=== PATIENT | male | born 1970 | race African-American/Black ===

== ENCOUNTER 2021-01-20 10:26 | Inpatient (IN) | payer OTHER ==
[~2021-01-20] VITALS: Ht 172.7 cm; Wt 46.3 kg
--- NOTE | 2021-01-20 18:15 | NUR ---
Received pt on shiley 6DCT. placed pt on cool aerosol via trach mask. pt awake and alert. back up trach and ambu bag at bedside. sx pt for mod amount of think yellow secretion. will cont to monitor pt.
--- NOTE | 2021-01-20 18:15 | NUR ---
PER REPORT FROM [facility] JUN[facility] PT. HAS NO WOUNDS, NO SKIN CONDITIONS,AND DOXYCYCLINE WILL BE CONTINUED X 45DAYS FOR SSTI ON NECK SINCE NECK MASS WAS NEGATIVE FOR MALIGNANCY ,THIS IS TREATED INFECTION.
--- NOTE | 2021-01-20 18:15 | NUR ---
PT. WAS ADMITTED AT THIS TIME FROM [facility] .REPORT PREVIOUSLY OBTAINED FROM [facility] RN SLADE COVARRUBIAS REPORT TO CH. NURSE AND ACCORDING TO HER PT .IS ALERT AND ORIENTED X PERSON ,PLACE,TIME AND SITUATION,NOT ON ANY PSYCHOTROPICS,CONTINENT OF B&B ABLE TO USE URINAL AND HE IS [place],HAS BLURRED VISION IS ON PUREED DIET(D/T DYSPHAGIA) WITH THIN LIQUIDS,RT. 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 HAS NO GASTRIC TUBE,.PT. HAD RT NECK MASS THAT HAD BIOPSY ON 12/28/[address] SCAN PENDING TO DO IN A FEW WEEKS MORE TO F/U.NO RECORD OF PNEUMONIA ,FLU VACCINE OR COVID 19 VACCINE ADM. LAST COVID 19 TEST WAS DONE ON 01/18/21 AND WAS NEGATIVE.
--- NOTE | 2021-01-20 18:20 | NUR ---
V/S CHECKED FOLLOW:134/96,HR 104X', O2 SAT 100%,RR 22X', TEMP. 98.3F,P/A 0/10.
--- NOTE | 2021-01-20 18:30 | NUR ---
DR. BENAVIDES WAS CALLED TO VERIFY MEDICAL ORDERS.
--- NOTE | 2021-01-20 18:45 | NUR ---
( CLUB ROOM ATTENDANT FOR DR. BENAVIDES )CALLED BACK AND MEDICAL ORDERS WERE VERIFIED WITH HIM AND STATED THAT HE WILL SEE PT. TOMORROW.ALSO DR. NEGRNO (ENERGY CONSERVATION SPECIALIST) WAS CALLED AND WITH ORDER TO CHANGE BREATHING TX'S FROM PRN TO Q 8 HRS. AND HE WILL EVALUATE PT.TOO.
[2021-01-20] MEDS ORDERED: hydrALAZINE HCL 10 MG TABLET PO PRN (19:30)
[2021-01-20] MEDS ORDERED: ALBUTEROL SULFATE 2.5 MG/3 ML NEBU NEB PRN (19:30)
[2021-01-20] MEDS ORDERED: BISACODYL 10 MG SUPP.RECT RC PRN (19:30)
[2021-01-20] MEDS ORDERED: ACETAMINOPHEN 325 MG TABLET-SA PATIENTS-FEVER ONLY PO PRN (19:30)
[2021-01-20] MEDS ORDERED: ONDANSETRON HCL 4 MG TABLET PO PRN (19:45)
[2021-01-20 20:00] VITALS: BP 119/70
[2021-01-20] MEDS: DEXAMETHASONE 4 MG TABLET PO SCH (21:00)
[2021-01-20] MEDS: DOXYCYCLINE HYCLATE 100 MG TABLET PO SCH (21:00)
[2021-01-20] MEDS: FAMOTIDINE 20 MG TABLET PO SCH (21:00)
[2021-01-20 22:00] VITALS: BP 120/65
[2021-01-20] MEDS: GUAIFENESIN/DEXTROMETHORPHAN 5 ML UDC PO PRN (22:00)
[2021-01-20] MEDS: ALBUTEROL SULFATE 2.5 MG/3 ML NEBU NEB SCH (22:00)
--- NOTE | 2021-01-20 22:00 | NUR ---
Patient is alert and oriented, trach is intact, on TM @ 28% Fi02, 02 sat @ 100%, Denies any pain at this time. Patient is on puree diet and is requesting for Bagels, eggs and waffles. I informed him that we need to have the speech evaluate him before giving him the regular foods he was asking and I informed him of his current puree diet and offered him variety of pureed foods but he refused and requested for apple juice. I gave him apple juice with his medications and he took it without any problems, on aspiration precaution. Body assessment done and noted with multiple tattoos all over his body, noted with skin dryness on both feet extending to the legs, open skin on the lower lip, left lateral foot bunion, Bump on right mastoid area; skin is intact around bump, Noted with skin growth on the occipital area, and above tracheostomy site. with decreased hearing on the right ear and blurred vision on the left eye. Patient also claimed that he has right sided weakness but is able to raise both right upper and lower extremities briefly. He allowed us to do body check but refused to be touch on the Right Neck area. Patient is seen using the urinal and he is continent of bowel, kept patient clean and comfortable, needs attended and call light within his reach. Addendum: 01/21/21 at 0147 by EVANGELISTA KEMP RN On Doxycycline by mouth for SSTI, no adverse reactions noted, afebrile, good skin care done, will continue monitor.
--- NOTE | 2021-01-20 22:00 | NUR ---
TX NOT GIVEN DUE TO PUI PROTOCOL
[2021-01-21] VITALS: BP_SYST 118; BP_SYST 122; BP_DIAS 68; BP_DIAS 78
[2021-01-21] MEDS: NEOMY/BACITRAC/POLYMI OINT 28.35 GM TUBE TOP SCH ×3 (02:01→21:01)
[2021-01-21] MEDS: VITAMINS A AND D OINT TP SCH ×7 (02:02→21:01)
[2021-01-21] MEDS: GUAIFENESIN/DEXTROMETHORPHAN 5 ML UDC PO PRN (03:00)
[2021-01-21 04:00] VITALS: BP 122/77
[2021-01-21 06:00] VITALS: BP 120/68
[2021-01-21] MEDS: ALBUTEROL SULFATE 2.5 MG/3 ML NEBU NEB SCH ×3 (06:00→23:35)
[2021-01-21 07:55] VITALS: BP 119/75
[2021-01-21] MEDS: DOXYCYCLINE HYCLATE 100 MG TABLET PO SCH ×2 (09:00→20:57)
[2021-01-21] MEDS: DEXAMETHASONE 4 MG TABLET PO SCH ×2 (09:00→20:49)
[2021-01-21] MEDS: POLYVINYL ALCOHOL OPHT DROPS 15 ML BOTTLE OP SCH ×3 (09:00→17:40)
[2021-01-21] MEDS: MAG HYDROX/AL HYDROX/SIMETH 30 ML LIQUID UDC PO SCH ×3 (09:00→17:44)
[2021-01-21] MEDS: AMLODIPINE 5 MG TABLET PO SCH (09:00)
[2021-01-21] MEDS: CARBAMIDE PEROXIDE OTIC DROP 15 ML BOTTLE OT SCH ×2 (09:00→17:44)
[2021-01-21] MEDS: GABAPENTIN 300 MG CAPSULE PO SCH ×3 (09:00→17:43)
[2021-01-21] MEDS: MEGESTROL ACETATE 400 MG/10 ML LIQUID UDC PO SCH (09:00)
[2021-01-21] MEDS: FAMOTIDINE 20 MG TABLET PO SCH ×2 (09:00→20:57)
--- NOTE | 2021-01-21 10:00 | NUR ---
DR. SILVA WAS CALLED TODAY AND HE STATED THAT WILL SEE PT. TODAY.
[2021-01-21] MEDS ORDERED: TUBERCULIN,PURIF.PROT.DERIV. 5 TU/0.1 ML TEST ID ONE (11:30)
--- NOTE | 2021-01-21 12:52 | NUR ---
PT'S BROTHER CHAPO (VERIFIED WITH PT'S ADEEL GOEL)STATED THAT WILL CALL PT. TODAY AND PT. AWARE.
--- NOTE | 2021-01-21 12:55 | NUR ---
PT'S BROTHER SELF SUCTIONING MOUTH AND NOTED REDDISH COLOR SECRETIONS IN SUCTION CANISTER (PT. DRANK THIN RED COLOR ENSURE) ,THICK TRACHEAL SECRETIONS NOTED FROM TACH.
--- NOTE | 2021-01-21 12:58 | NUR ---
DIETARY AWARE THAT PT. DOES NOT LITE OATMEAL ,THAT HE PREFERS GRITS,AND PT. REQUESTING DOUBLE PORTION OF MEALS.
--- NOTE | 2021-01-21 13:00 | NUR ---
PT. ABLE TO USE URINAL BY HIMSELF AND NOTED LIGHT ORANGE URINE COLOR,NEEDS ASSISTANCE FOR PERSONAL CARE BUT WITH ACTIVELY PARTICIPATING ON IT AND DOING IT IN HIS TIME.
--- NOTE | 2021-01-21 13:03 | NUR ---
CALL LIGHT ON REACH AND ABLE TO USE IT.PUI MEASURES FOR COVID 19 PROTOCOL OF ADMISSION TO SUB ACUTE UNIT KEPT AT ALL TIMES.
--- NOTE | 2021-01-21 14:00 | NUR ---
INVENTORY ADMISSION LIST VERIFIED WITH PT. BUT HE WAS UNABLE TO SIGN IT.
[2021-01-21 20:00] VITALS: BP 122/84
--- NOTE | 2021-01-21 21:37 | NUR ---
Patient is alert and oriented, trach intact and patent, patient is able to suction his mouth with the yankauer, noted with thick yellow secretions, no respiratory distress noted. On Doxycycline by mouth for SSTI, no adverse reactions noted. Good skin care done. On contact isolation precaution for PUI per admission protocol. Kept clean and dry, needs attended, call light within reach.
[2021-01-22] VITALS: BP 130/84
[2021-01-22 06:06] VITALS: BP 126/86
--- NOTE | 2021-01-22 06:53 | NUR ---
Sharan from the [facility] called and relayed Covid 19 test result that was Negative, patient is alert and oriented, notified patient of his covid 19 Negative result.
[2021-01-22 07:42] VITALS: BP 124/85
[2021-01-22] MEDS: ALBUTEROL SULFATE 2.5 MG/3 ML NEBU NEB SCH ×3 (08:11→22:00)
--- NOTE | 2021-01-22 09:30 | NUR ---
PT. WAS EVALUATED BY PHYSICAL THERAPIST KHALIF AND WITH NEW ORDERS CARRIED OUT FROM DR. BENAVIDES.
[2021-01-22] MEDS: POLYVINYL ALCOHOL OPHT DROPS 15 ML BOTTLE OP SCH ×3 (09:55→17:33)
[2021-01-22] MEDS: CARBAMIDE PEROXIDE OTIC DROP 15 ML BOTTLE OT SCH ×2 (09:55→17:33)
[2021-01-22] MEDS: DEXAMETHASONE 4 MG TABLET PO SCH ×2 (09:56→21:00)
[2021-01-22] MEDS: MEGESTROL ACETATE 400 MG/10 ML LIQUID UDC PO SCH (09:57)
[2021-01-22] MEDS: VITAMINS A AND D OINT TP SCH ×5 (09:58→21:00)
[2021-01-22] MEDS: DOXYCYCLINE HYCLATE 100 MG TABLET PO SCH ×2 (09:58→21:00)
[2021-01-22] MEDS: GABAPENTIN 300 MG CAPSULE PO SCH ×3 (09:58→17:34)
[2021-01-22] MEDS: FAMOTIDINE 20 MG TABLET PO SCH ×2 (09:58→21:00)
[2021-01-22] MEDS: NEOMY/BACITRAC/POLYMI OINT 28.35 GM TUBE TOP SCH ×2 (09:58→21:00)
[2021-01-22] MEDS: AMLODIPINE 5 MG TABLET PO SCH (09:58)
[2021-01-22] MEDS: MAG HYDROX/AL HYDROX/SIMETH 30 ML LIQUID UDC PO SCH ×3 (09:59→17:33)
[2021-01-22 12:15] VITALS: BP 121/80
--- NOTE | 2021-01-22 13:22 | NUR ---
PT. WAS SEEN AND EXAMINED BY DR. GODINEZ AND HE EXAMINED HIS EARS(SEE HIS NOTES) AND HE STATED THAT CONTINUE THE DOXYCYCLINE ORDERED,ALSO HE WAS AWARE OF [facility] FOR [facility] FOR STOPPING DATE OF DEBROX.
--- NOTE | 2021-01-22 13:25 | NUR ---
PER DR. GODINEZ STATMENT PT. HAS SOMETHING INSIDE RT EAR MAY BE LIKE A COTTON PIECE BUT HE IS UNABLE TO REMOVE IT AT THIS TIME AND WITH NNO AT THIS TIME.
--- NOTE | 2021-01-22 13:25 | NUR ---
PER PT'S STATEMENT HE SAID HE PUT A Q TIP IN HIS RT EAR A MONTH AGO AND IN PREVIOUS HOSPITAL THEY COULD NOT REMOVED BECAUSE THEY DID NOT HAVE THE "SPATULA" .
--- NOTE | 2021-01-22 13:27 | NUR ---
DR. SILVA ALSO AWARE THAT PT. DOES NOT WANT ANY PNEUMONIA,FLU OR COVID 19 VACCINE.
--- NOTE | 2021-01-22 17:59 | NUR ---
NEW ORDER WAS CARRIED OUT FOR COVID [address] GODINEZ PER [facility] REQUIREMENT.
[2021-01-22 18:38] VITALS: BP 129/82
[2021-01-22 21:00] VITALS: BP 120/84
[2021-01-23] VITALS: BP 118/77
[2021-01-23 06:24] VITALS: BP 126/90
[2021-01-23] MEDS: ALBUTEROL SULFATE 2.5 MG/3 ML NEBU NEB SCH ×3 (07:29→23:18)
[2021-01-23 07:50] VITALS: BP 127/93
[2021-01-23] MEDS: CARBAMIDE PEROXIDE OTIC DROP 15 ML BOTTLE OT SCH ×2 (09:22→18:00)
[2021-01-23] MEDS: POLYVINYL ALCOHOL OPHT DROPS 15 ML BOTTLE OP SCH ×3 (09:32→18:00)
[2021-01-23] MEDS: DEXAMETHASONE 4 MG TABLET PO SCH ×2 (09:34→21:00)
[2021-01-23] MEDS: MAG HYDROX/AL HYDROX/SIMETH 30 ML LIQUID UDC PO SCH ×3 (09:34→18:00)
[2021-01-23] MEDS: GABAPENTIN 300 MG CAPSULE PO SCH ×3 (09:37→18:00)
[2021-01-23] MEDS: MEGESTROL ACETATE 400 MG/10 ML LIQUID UDC PO SCH (09:37)
[2021-01-23] MEDS: AMLODIPINE 5 MG TABLET PO SCH (09:38)
[2021-01-23] MEDS: DOXYCYCLINE HYCLATE 100 MG TABLET PO SCH ×2 (09:39→21:00)
[2021-01-23] MEDS: FAMOTIDINE 20 MG TABLET PO SCH ×2 (09:39→21:00)
[2021-01-23] MEDS: NEOMY/BACITRAC/POLYMI OINT 28.35 GM TUBE TOP SCH ×2 (09:39→21:00)
[2021-01-23] MEDS: VITAMINS A AND D OINT TP SCH ×5 (09:40→21:00)
--- NOTE | 2021-01-23 12:22 | NUR ---
CONSENT FROM PT'S SON SHERI GIVEN TO 2 NURSES TO ADMINISTRATE 2ND DOSE MODERNA VACCINE ORDERD BY DR. WHITE .HE WAS ALSO AWARE THAT PT.HAS AN ORDER FOR WOUND CARE CONSULT TO RE-EVALUATE SACRAL SKIN D/T IS SHOWING SOME DRY PEELING OPEN SKIN AND THAT A PICTURE WAS TAKEN TOO AND HE WAS IN AGREEMENT.HE ASKED NURSE IF WE CAN PROVIDE PURE WICK URINE COLLECTION DEVICE TO CONTROL CONSTANT URINATION(PT. ON 2 ) AND THIS WILL BE F/U WITH APPRENTICE PHOTOGRAPHER,SHERI STATED THAT THIS WORKED GOOD IN THE OTHER FACILITY. Addendum: 01/24/21 at 1600 by RACHELLE MAI RN ERROR IN ENTRY WRONG ACCOUNT.
--- NOTE | 2021-01-23 12:24 | NUR ---
Pie Topper Assessment: 11:40am: This LCSWW met with the patient today to complete the initial admission assessment. Patient is a 50-year old -Hungarian male, admitted from [facility] to [facility] on 01/20/21. Patient has diagnosis of nontraumatic intracerebral hemorrhage, currently requiring a trach. Patient is alert, oriented, able to communicate, although speech is at times unclear and tone of voice is pressured. Patient is disabled, reports no work history. Patient lives in an apartment with his and children (18 year old boy and 8 year old girl). Patients [address] is [address] [place], [place] [address] [place] [address]. Patients phone number is [phone]. Patient reports occasional use of cigarettes and alcohol, and regular use of marijuana. Patient did not provide specifics of frequency of use of marijuana, however stated that he last used marijuana before his hospitalization. Patient denied hx of mental illness; per patient's medical records patient is not on any antidepressants, anti-anxiety, or psychotropics medication. Patient observed to be guarded, limited in his engagement in conversation with this interviewee. Patient stated that STOCK DEALER can contact patients and patients brother for further information. STOCK DEALER to follow-up with patients family to complete initial assessment, and to coordinate obtaining signatures on patients admission paperwork. Patient's code status is a Full Code.
--- NOTE | 2021-01-23 12:25 | NUR ---
ERROR IN ENTRY,WRONG ACCOUNT. Addendum: 01/24/21 at 1602 by RACHELLE MAI RN ON 01/23/21 AT 12:22 WRONG ACCOUNT ENTRY.(CLARIFICATION)
[2021-01-23 12:30] VITALS: BP 120/90
--- NOTE | 2021-01-23 15:31 | NUR ---
ACTUARIAL DIRECTOR EZEQUIEL PATTERSON WAS NOTIFIED RE: PT. NEEDS ENT MD IS NEEDED TO F/U REMOVAL OF APPARENTLY A COTTON PIECE FROM A Q TIP FROM PT'S RT. EAR ACCORDING TO DR. GODINEZ FINDING YESTERDAY.
--- NOTE | 2021-01-23 15:38 | NUR ---
DIETARY WAS AWARE OF PT'S FOOD PREFERENCES IN THE MORNING AND REG. BOWLING BALL MOLD ASSEMBLER TOO AWARE OF PT'S WT. 102.4# AND WILL F/U TO EVALUATE.
[2021-01-23 17:12] LABS: THYROID STIMULATING HORMONE 2.296 mIU/mL (0.358-3.740)
--- NOTE | 2021-01-23 18:00 | NUR ---
PT. OBSERVED SUCTIONING HIMSELF MOUTH SPECIALLY AFTER HE TAKES ANYTHING BY MOUTH BUT WHEN TRACHEAL SECRETIONS SUCTIONED NOTED NO PARTICLES OF FOOD.
[2021-01-23 18:12] VITALS: BP 110/87
[2021-01-23] MEDS: GUAIFENESIN/DEXTROMETHORPHAN 5 ML UDC PO PRN (18:17)
--- NOTE | 2021-01-23 18:52 | NUR ---
DR. GODINEZ WAS CALLED TO F/U ENT EVAL FOR PT. AND HE STATED IF NO ENT CAN COME TO THE UNIT THEN ARRANGE TO SEND PT. OUT FOR APPOINTMENT,MESSAGE LEFT TO WILDLIFE CONSERVATIONIST EZEQUIEL PATTERSON.
[2021-01-23 20:07] VITALS: BP 118/79
--- NOTE | 2021-01-23 23:19 | NUR ---
TX NOT GIVEN PT IS PUI, NOTIFIED RN. NO RESP DISTRESS NOTED.
[2021-01-24] VITALS: BP 124/86
[2021-01-24] MEDS: ALBUTEROL SULFATE 2.5 MG/3 ML NEBU NEB SCH ×3 (00:06→15:43)
[2021-01-24 06:30] VITALS: BP 123/82
[2021-01-24 06:43] LABS: BASOPHILS % (AUTO) 0.1 % (0.0-2.0); LYMPHOCYTES # (AUTO) 0.6 K/uL (20.0-40.0); LYMPHOCYTES % (AUTO) 4.5 % (20.5-51.5); MEAN CORPUSCULAR HEMOGLOBIN 31.4 uug (23.8-33.4); MEAN CORPUSCULAR HGB CONC 33 g/dL (32.5-36.3); MEAN CORPUSCULAR VOLUME 93.9 fL (73.0-96.2); MONOCYTES # (AUTO) 1.3 K/uL (2.0-10.0); MONOCYTES % (AUTO) 9.2 % (0.0-11.0); NEUTROPHILS # (AUTO) 11.9 K/uL (1.8-8.9); NEUTROPHILS % (AUTO) 86.2 % (38.5-71.5); PLATELET COUNT (AUTO) 282 K/uL (152-348); RED BLOOD CELL COUNT(AUTO) 4.16 MIL/uL (4.06-5.63); WHITE BLOOD COUNT (AUTO) 13.8 K/uL (3.6-10.2)
[2021-01-24 06:54] LABS: ALANINE AMINOTRANSFERASE 103 U/L (16-63); ALKALINE PHOSPHATASE 89 U/L (50-136); ASPARTATE AMINOTRANSFERASE 28 U/L (15-37); BILIRUBIN,TOTAL 0.4 mg/dL (0.2-1.0); CARBON DIOXIDE 25 mmol/L (21-32); CHLORIDE 99 mmol/L (98-107); CREATININE 0.7 mg/dL (0.6-1.3); GLUCOSE 128 mg/dL (74-106); MAGNESIUM 2.4 mg/dL (1.8-2.4); PHOSPHOROUS 3.2 mg/dL (2.5-4.9); POTASSIUM 4.6 mmol/L (3.5-5.1); TOTAL PROTEIN, SERUM 6.1 g/dL (6.4-8.2); UREA NITROGEN, BLOOD 24 mg/dL (7-18)
[2021-01-24 07:39] VITALS: BP 124/84
[2021-01-24] MEDS: CARBAMIDE PEROXIDE OTIC DROP 15 ML BOTTLE OT SCH (08:33)
[2021-01-24] MEDS: POLYVINYL ALCOHOL OPHT DROPS 15 ML BOTTLE OP SCH (08:33)
[2021-01-24] MEDS: DEXAMETHASONE 4 MG TABLET PO SCH ×2 (08:34→21:19)
[2021-01-24] MEDS: GABAPENTIN 300 MG CAPSULE PO SCH ×3 (08:36→17:38)
[2021-01-24] MEDS: MEGESTROL ACETATE 400 MG/10 ML LIQUID UDC PO SCH (08:36)
[2021-01-24] MEDS: FAMOTIDINE 20 MG TABLET PO SCH ×2 (08:37→21:19)
[2021-01-24] MEDS: AMLODIPINE 5 MG TABLET PO SCH (08:37)
[2021-01-24] MEDS: VITAMINS A AND D OINT TP SCH ×5 (08:38→21:20)
[2021-01-24] MEDS: DOXYCYCLINE HYCLATE 100 MG TABLET PO SCH (08:38)
[2021-01-24] MEDS: MAG HYDROX/AL HYDROX/SIMETH 30 ML LIQUID UDC PO SCH ×3 (08:40→17:38)
[2021-01-24] MEDS: GUAIFENESIN/DEXTROMETHORPHAN 5 ML UDC PO PRN ×3 (08:47→22:32)
[2021-01-24] MEDS: NEOMY/BACITRAC/POLYMI OINT 28.35 GM TUBE TOP SCH ×2 (09:00→21:20)
--- NOTE | 2021-01-24 09:20 | NUR ---
DR. NEGRON WAS CALLED RE: PT. REQUEST FOR MEDICATION FOR HICCUPS.
[2021-01-24 12:00] VITALS: BP 108/53
[2021-01-24] MEDS: POLYVINYL ALCOHOL OPHT DROPS 15 ML BOTTLE EACHEYE SCH ×2 (12:53→17:38)
--- NOTE | 2021-01-24 14:20 | NUR ---
NEW ORDER FROM DR. BENAVIDES CARRIED OUT FOR [facility] FIRST STEP SELECT MATTRESS FOR SKIN MANAGEMENT D/T PT. IS UNDER WEIGHT PER REG. PROGRAM/MUSIC DIRECTOR CLARISSA .
--- NOTE | 2021-01-24 15:32 | NUR ---
ER DR. WILKERSON EXAMINED PT'S BOTH EARS ANS SHE WAS UNABLE TO REMOVE RT. EAR FOREIGN OBJET FROM PT'S EAR AND SHE WILL SPEAK WITH ENT TO F/U.
--- NOTE | 2021-01-24 17:32 | NUR ---
PER HELP DESK COORDINATOR EZEQUIEL PATTERSON ,UNDERWEAR HEMMER WILL BE DR. WHITE INSTEAD OF DR. NEGRON. WAS NOTIFIED AND DR. WHITE WAS CALLED AND WAS AIR EXPORT AGENT AND HE WAS NOTIFIED RE: PT. WITH PIECE OF Q TIP IN HIS RT EAR ACCORDING TO HIM AND HE SAID TO CONTINUE WITH ENT CONSULT ORDERED AND DR. WHITE WILL F/U TOMORROW TOO.PER HELP DESK COORDINATOR EZEQUIEL PATTERSON HE AND DR. FRANCIS WILL SPEAK TO MR CARNEY TOMORROW RE: ENT CONSULTATION.
[2021-01-24] MEDS: CARBAMIDE PEROXIDE OTIC DROP 15 ML BOTTLE RIGHT EAR SCH (17:38)
[2021-01-24 18:00] VITALS: BP 125/78
--- NOTE | 2021-01-24 18:00 | NUR ---
PPD READING AT 48 HRS AND AT 72 HRS WAS NEGATIVE(SEE RECORD)
[2021-01-24 20:00] VITALS: BP 128/83
[2021-01-25] VITALS: BP 125/85
[2021-01-25] MEDS: ALBUTEROL SULFATE 2.5 MG/3 ML NEBU NEB SCH ×3 (00:10→15:13)
[2021-01-25] MEDS: MAG HYDROX/AL HYDROX/SIMETH 30 ML LIQUID UDC PO SCH ×3 (08:00→17:20)
[2021-01-25 09:10] VITALS: BP 121/84
[2021-01-25] MEDS: POLYVINYL ALCOHOL OPHT DROPS 15 ML BOTTLE EACHEYE SCH ×3 (09:11→17:20)
[2021-01-25] MEDS: DEXAMETHASONE 4 MG TABLET PO SCH ×2 (09:14→21:23)
[2021-01-25] MEDS: GABAPENTIN 300 MG CAPSULE PO SCH ×3 (09:14→17:20)
[2021-01-25] MEDS: MEGESTROL ACETATE 400 MG/10 ML LIQUID UDC PO SCH (09:14)
[2021-01-25] MEDS: AMLODIPINE 5 MG TABLET PO SCH (09:14)
[2021-01-25] MEDS: VITAMINS A AND D OINT TP SCH ×5 (09:16→21:24)
[2021-01-25] MEDS: NEOMY/BACITRAC/POLYMI OINT 28.35 GM TUBE TOP SCH ×2 (09:16→21:24)
[2021-01-25] MEDS: FAMOTIDINE 20 MG TABLET PO SCH ×2 (09:16→21:24)
[2021-01-25] MEDS: CARBAMIDE PEROXIDE OTIC DROP 15 ML BOTTLE RIGHT EAR SCH ×2 (09:16→17:20)
[2021-01-25 11:54] VITALS: BP 128/85
--- NOTE | 2021-01-25 15:06 | NUR ---
DYLAN attempted to contact patient's Lexie [phone] in order to further discuss care coordination and admission paperwork, but Lexie was not available. DYLAN left a voicemail message asking for Lexie to call this DYLAN back.
[2021-01-25 18:02] VITALS: BP 121/76
--- NOTE | 2021-01-25 18:27 | NUR ---
SEEN AND EXAMINED BY DR WHITE, WITH NEW ORDERS, NOTED AND CARRIED OUT.
[2021-01-25 20:00] VITALS: BP 131/93
[2021-01-25] MEDS: CLOTRIMAZOLE 10 MG TROCHE MM SCH (21:22)
[2021-01-25] MEDS: GUAIFENESIN/DEXTROMETHORPHAN 5 ML UDC PO PRN (21:32)
--- NOTE | 2021-01-25 22:00 | NUR ---
Patient is alert and oriented, trach is intact and patent, patient is noted suctioning his mouth, noted with thick yellow sputum, on Mycelex by mouth for oral candidiasis, no adverse reactions noted. Denies any discomfort, needs attended, call light within reach, will continue monitor.
[2021-01-26] MEDS: CLOTRIMAZOLE 10 MG TROCHE MM SCH ×5 (05:50→21:21)
[2021-01-26 06:08] VITALS: BP 131/88
[2021-01-26] MEDS: GUAIFENESIN/DEXTROMETHORPHAN 5 ML UDC PO PRN ×2 (06:08→21:30)
[2021-01-26 06:45] LABS: BASOPHILS % (AUTO) 0.1 % (0.0-2.0); HEMOGLOBIN 13.2 g/dL (12.5-16.3); LYMPHOCYTES # (AUTO) 0.3 K/uL (20.0-40.0); LYMPHOCYTES % (AUTO) 1.8 % (20.5-51.5); MEAN CORPUSCULAR HEMOGLOBIN 30.9 uug (23.8-33.4); MEAN CORPUSCULAR HGB CONC 33 g/dL (32.5-36.3); MEAN CORPUSCULAR VOLUME 93.5 fL (73.0-96.2); MONOCYTES # (AUTO) 1.6 K/uL (2.0-10.0); MONOCYTES % (AUTO) 8.6 % (0.0-11.0); NEUTROPHILS # (AUTO) 16.6 K/uL (1.8-8.9); NEUTROPHILS % (AUTO) 89.5 % (38.5-71.5); PLATELET COUNT (AUTO) 297 K/uL (152-348); RED BLOOD CELL COUNT(AUTO) 4.28 MIL/uL (4.06-5.63); WHITE BLOOD COUNT (AUTO) 18.6 K/uL (3.6-10.2)
[2021-01-26 06:52] LABS: CREATININE 0.8 mg/dL (0.6-1.3); POTASSIUM 4.2 mmol/L (3.5-5.1)
[2021-01-26] MEDS: ALBUTEROL SULFATE 2.5 MG/3 ML NEBU NEB SCH ×3 (07:58→23:40)
[2021-01-26] MEDS: MAG HYDROX/AL HYDROX/SIMETH 30 ML LIQUID UDC PO SCH ×3 (08:00→17:36)
[2021-01-26 08:03] VITALS: BP 120/80
[2021-01-26] MEDS: POLYVINYL ALCOHOL OPHT DROPS 15 ML BOTTLE EACHEYE SCH ×3 (09:00→17:36)
[2021-01-26] MEDS: VITAMINS A AND D OINT TP SCH ×5 (09:00→21:24)
[2021-01-26] MEDS: CARBAMIDE PEROXIDE OTIC DROP 15 ML BOTTLE RIGHT EAR SCH ×2 (09:00→17:36)
[2021-01-26] MEDS: MEGESTROL ACETATE 400 MG/10 ML LIQUID UDC PO SCH (09:00)
[2021-01-26] MEDS: GABAPENTIN 300 MG CAPSULE PO SCH ×3 (09:00→17:36)
[2021-01-26] MEDS: NEOMY/BACITRAC/POLYMI OINT 28.35 GM TUBE TOP SCH ×2 (09:00→21:24)
[2021-01-26] MEDS: FAMOTIDINE 20 MG TABLET PO SCH (09:00)
[2021-01-26] MEDS: AMLODIPINE 5 MG TABLET PO SCH (09:00)
[2021-01-26] MEDS: DEXAMETHASONE 4 MG TABLET PO SCH ×2 (09:00→21:23)
--- NOTE | 2021-01-26 11:42 | NUR ---
Career Center Advisor note: This MANAGER WORKERS COMPENSATION received a voicemail message from patient's Lexie, in response to the voicemail this SW had left her yesterday. MANAGER WORKERS COMPENSATION called Lexie back, , and Lexie was available to speak with this SW. Lexie stated that patient has been disabled since 2008, even though he was able somewhat mobile and able to tend to some basic needs. Lexie stated that she is his [facility] caregiver, and assists him with additional ADL's and IADL's. Lexie is the primary point of contact for the patient. SW discussed admission paperwork, and Lexie asked for MANAGER WORKERS COMPENSATION to mail it to her for review and signatures. MANAGER WORKERS COMPENSATION to mail admission paperwork to Lexie. Discharge plans discussed, and Lexie stated that she is hoping that patient is able to get back to his previous level of functioning so that he can then return home. Lexie stated that patient's mother Sharri is also involved in his life. Patient is Full Code.
[2021-01-26 12:00] VITALS: BP 132/86
[2021-01-26] MEDS: PANTOPRAZOLE SODIUM 40 MG TABLET.DR PO SCH (17:00)
[2021-01-26 18:19] VITALS: BP 140/90
[2021-01-26 20:00] VITALS: BP 127/83
[2021-01-26] MEDS: DOXYCYCLINE HYCLATE 100 MG TABLET PO SCH (21:23)
--- NOTE | 2021-01-26 23:30 | NUR ---
Patient is awake, suctioning his mouth with a yankaeur, noted with thick yellow sputum. Denies any respiratory distress. On Mycelex for oral candidiasis, no adverse reactions noted, good oral care rendered. On Doxycycline 100mg by mouth every 12 Hours X 3 months for Leukocytosis, no adverse reactions noted. Patient denies any respiratory distress, needs attended, kept clean and comfortable, call light within reach.
--- NOTE | 2021-01-27 02:45 | NUR ---
Patient is alert and is complaining of discomfort on sacral area, skin with old scar and skin is dry, patient is always on his back, patient is skinny, will Initiate in-house treatment with Desitin and Mepilex for skin maintenance.
[2021-01-27] MEDS: COD LIVER OIL/ZINC OXIDE OINT 113 GM TUBE TOP SCH ×3 (03:00→21:00)
[2021-01-27] MEDS: CLOTRIMAZOLE 10 MG TROCHE MM SCH ×5 (05:32→21:00)
[2021-01-27] MEDS: PANTOPRAZOLE SODIUM 40 MG TABLET.DR PO SCH ×2 (05:35→17:22)
[2021-01-27 06:33] LABS: BASOPHILS % (AUTO) 0.2 % (0.0-2.0); HEMATOCRIT 40.4 % (36.7-47.1); HEMOGLOBIN 13.5 g/dL (12.5-16.3); LYMPHOCYTES # (AUTO) 0.4 K/uL (20.0-40.0); MEAN CORPUSCULAR HEMOGLOBIN 31.2 uug (23.8-33.4); MEAN CORPUSCULAR HGB CONC 33 g/dL (32.5-36.3); MEAN CORPUSCULAR VOLUME 93.5 fL (73.0-96.2); MONOCYTES # (AUTO) 1.4 K/uL (2.0-10.0); MONOCYTES % (AUTO) 7.9 % (0.0-11.0); NEUTROPHILS # (AUTO) 15.5 K/uL (1.8-8.9); NEUTROPHILS % (AUTO) 89.9 % (38.5-71.5); PLATELET COUNT (AUTO) 299 K/uL (152-348); RED BLOOD CELL COUNT(AUTO) 4.32 MIL/uL (4.06-5.63); WHITE BLOOD COUNT (AUTO) 17.2 K/uL (3.6-10.2)
[2021-01-27 06:42] LABS: CARBON DIOXIDE 25 mmol/L (21-32); CHLORIDE 98 mmol/L (98-107); CREATININE 0.6 mg/dL (0.6-1.3); GLUCOSE 124 mg/dL (74-106); POTASSIUM 4.5 mmol/L (3.5-5.1); UREA NITROGEN, BLOOD 22 mg/dL (7-18)
[2021-01-27] MEDS: ALBUTEROL SULFATE 2.5 MG/3 ML NEBU NEB SCH ×3 (07:36→23:44)
[2021-01-27 07:45] VITALS: BP_SYST 130; BP_SYST 98; BP_DIAS 53; BP_DIAS 87
--- NOTE | 2021-01-27 07:45 | NUR ---
PT COMPLAINING OF BREAKFAST SRVE TO HIM. EXPLAINED TO PT THAT HE IS ON A PUREE DIET. BUT COMPLAINING HE WANT CEREAL TO BE DRY. PLACED A CALL TO IT SALES CONSULTANT. IT SALES CONSULTANT WILL COME AND SPEAK TO PT.
--- NOTE | 2021-01-27 08:50 | NUR ---
GIS DEVELOPER CAME AND SPOKE TO PATIENT REGARDING DIET ORDER.
[2021-01-27] MEDS: MAG HYDROX/AL HYDROX/SIMETH 30 ML LIQUID UDC PO SCH ×3 (08:52→17:23)
[2021-01-27] MEDS: POLYVINYL ALCOHOL OPHT DROPS 15 ML BOTTLE EACHEYE SCH ×3 (08:53→17:20)
[2021-01-27] MEDS: DEXAMETHASONE 4 MG TABLET PO SCH ×2 (08:54→21:00)
[2021-01-27] MEDS: GABAPENTIN 300 MG CAPSULE PO SCH ×3 (08:55→17:20)
[2021-01-27] MEDS: AMLODIPINE 5 MG TABLET PO SCH (08:55)
[2021-01-27] MEDS: MEGESTROL ACETATE 400 MG/10 ML LIQUID UDC PO SCH (08:55)
[2021-01-27] MEDS: NEOMY/BACITRAC/POLYMI OINT 28.35 GM TUBE TOP SCH ×2 (08:56→21:00)
[2021-01-27] MEDS: CARBAMIDE PEROXIDE OTIC DROP 15 ML BOTTLE RIGHT EAR SCH ×2 (08:56→17:23)
[2021-01-27] MEDS: VITAMINS A AND D OINT TP SCH ×5 (08:56→21:00)
[2021-01-27] MEDS: DOXYCYCLINE HYCLATE 100 MG TABLET PO SCH ×2 (08:56→21:00)
[2021-01-27 12:00] VITALS: BP 128/74
--- NOTE | 2021-01-27 14:56 | NUR ---
Per physician's order, this MOULDER OPERATOR scheduled an ENT appointment for the patient with Dr. Douglas Marie, for 02/06/21 at 4:15pm. [id number], [place], .
--- NOTE | 2021-01-27 15:21 | NUR ---
This NAME PLATE STAMPER and nurse track manager Jaime Lu met with the patient to inform him of the ENT appointment that has been scheduled for him, per physician's orders. Patient expressed refusal to go to the appointment, and refusal to get the evaluations that were recommended. This NAME PLATE STAMPER and Jaime Lu informed Dr. Vaca and charge entry Mario of patient's refusal.
--- NOTE | 2021-01-27 16:46 | NUR ---
This DOWNSTREAM BIOMANUFACTURING TECHNICIAN mailed the patient's admission paperwork to patient's Lexie, for completion and signatures. This [facility] also mailed the current visitation guidelines for the subacute unit. Mailing address: [address] [place] [address]. [address] [place] [address]
[2021-01-27 18:32] VITALS: BP 132/71
[2021-01-27 20:20] VITALS: BP 120/76
[2021-01-28] MEDS: PANTOPRAZOLE SODIUM 40 MG TABLET.DR PO SCH ×2 (05:44→17:05)
[2021-01-28] MEDS: CLOTRIMAZOLE 10 MG TROCHE MM SCH ×5 (05:44→21:31)
[2021-01-28 06:00] VITALS: BP 122/70
[2021-01-28 07:52] VITALS: BP 120/61
[2021-01-28] MEDS: MAG HYDROX/AL HYDROX/SIMETH 30 ML LIQUID UDC PO SCH ×3 (08:00→17:09)
[2021-01-28] MEDS: ALBUTEROL SULFATE 2.5 MG/3 ML NEBU NEB SCH ×2 (08:21→15:56)
[2021-01-28] MEDS: POLYVINYL ALCOHOL OPHT DROPS 15 ML BOTTLE EACHEYE SCH ×3 (09:00→17:04)
[2021-01-28] MEDS: GABAPENTIN 300 MG CAPSULE PO SCH ×3 (09:00→17:04)
[2021-01-28] MEDS: AMLODIPINE 5 MG TABLET PO SCH (09:00)
[2021-01-28] MEDS: VITAMINS A AND D OINT TP SCH ×5 (09:00→21:32)
[2021-01-28] MEDS: COD LIVER OIL/ZINC OXIDE OINT 113 GM TUBE TOP SCH ×2 (09:00→21:32)
[2021-01-28] MEDS: NEOMY/BACITRAC/POLYMI OINT 28.35 GM TUBE TOP SCH ×2 (09:00→21:32)
[2021-01-28] MEDS: CARBAMIDE PEROXIDE OTIC DROP 15 ML BOTTLE RIGHT EAR SCH ×2 (09:00→17:05)
[2021-01-28] MEDS: DEXAMETHASONE 4 MG TABLET PO SCH ×2 (09:00→21:31)
[2021-01-28] MEDS: DOXYCYCLINE HYCLATE 100 MG TABLET PO SCH ×2 (09:00→21:32)
[2021-01-28] MEDS: MEGESTROL ACETATE 400 MG/10 ML LIQUID UDC PO SCH (09:00)
[2021-01-28] MEDS: ACETAMINOPHEN 325 MG TABLET-SA PATIENTS-PAIN ONLY PO PRN (10:22)
[2021-01-28 12:00] VITALS: BP 126/74
[2021-01-28 17:55] VITALS: BP 124/87
[2021-01-28 20:22] VITALS: BP 122/79
[2021-01-28] MEDS: GUAIFENESIN/DEXTROMETHORPHAN 5 ML UDC PO PRN (22:00)
[2021-01-29] VITALS: BP 120/72
[2021-01-29] MEDS: ALBUTEROL SULFATE 2.5 MG/3 ML NEBU NEB SCH ×4 (00:06→23:30)
[2021-01-29] MEDS: ACETAMINOPHEN 325 MG TABLET-SA PATIENTS-PAIN ONLY PO PRN (00:47)
--- NOTE | 2021-01-29 01:40 | NUR ---
Patient is awake, afebrile, suctioning his mouth with a yankaeur, noted with thick yellow sputum with some red color noted from suction canister. Patient is drinking an Ensure that is [place] flavor noted at bedside and patient confirmed that, that was what he drank earlier. Denies any respiratory distress or SOB, on aspiration precaution, HOB elevated. On Mycelex for oral candidiasis, no adverse reactions noted, good oral care rendered. Also, On Doxycycline 100mg by mouth every 12 Hours X 3 months for Leukocytosis, no adverse reactions noted. Patient needs attended, kept clean and comfortable, call light within reach.
[2021-01-29] MEDS: PANTOPRAZOLE SODIUM 40 MG TABLET.DR PO SCH ×2 (05:18→17:30)
[2021-01-29] MEDS: CLOTRIMAZOLE 10 MG TROCHE MM SCH ×5 (05:18→20:10)
[2021-01-29] MEDS: GUAIFENESIN/DEXTROMETHORPHAN 5 ML UDC PO PRN (05:39)
[2021-01-29 06:00] VITALS: BP 128/76
[2021-01-29 08:01] VITALS: BP 116/77
[2021-01-29] MEDS: MAG HYDROX/AL HYDROX/SIMETH 30 ML LIQUID UDC PO SCH ×3 (08:45→17:32)
[2021-01-29] MEDS: POLYVINYL ALCOHOL OPHT DROPS 15 ML BOTTLE EACHEYE SCH ×3 (08:47→17:28)
[2021-01-29] MEDS: DEXAMETHASONE 4 MG TABLET PO SCH ×2 (08:48→20:09)
[2021-01-29] MEDS: MEGESTROL ACETATE 400 MG/10 ML LIQUID UDC PO SCH (08:50)
[2021-01-29] MEDS: AMLODIPINE 5 MG TABLET PO SCH (08:50)
[2021-01-29] MEDS: GABAPENTIN 300 MG CAPSULE PO SCH ×3 (08:50→17:28)
[2021-01-29] MEDS: DOXYCYCLINE HYCLATE 100 MG TABLET PO SCH ×2 (08:51→20:09)
[2021-01-29] MEDS: COD LIVER OIL/ZINC OXIDE OINT 113 GM TUBE TOP SCH ×2 (08:51→20:11)
[2021-01-29] MEDS: NEOMY/BACITRAC/POLYMI OINT 28.35 GM TUBE TOP SCH ×2 (08:52→20:11)
[2021-01-29] MEDS: VITAMINS A AND D OINT TP SCH ×5 (08:52→20:12)
[2021-01-29] MEDS: CARBAMIDE PEROXIDE OTIC DROP 15 ML BOTTLE RIGHT EAR SCH ×2 (08:56→17:31)
[2021-01-29 17:37] VITALS: BP 125/71
--- NOTE | 2021-01-29 17:45 | NUR ---
Covid 19 test done.
--- NOTE | 2021-01-29 18:01 | NUR ---
Patient is afebrile, suctioned as needed,No respiratory distress or SOB noted,On Po Feeding ,able to feed himself, Hob elevated to prevent aspiration, Continue on Mycelex for oral candidiasis, no adverse reactions noted, oral care done. On Doxycycline 100mg po Q 12 Hours for Leukocytosis, no adverse reactions noted.Pt uses the urinal,able to move in bed.and change his position.
[2021-01-29 18:20] VITALS: BP 127/74
[2021-01-29 20:00] VITALS: BP 114/79
[2021-01-30] MEDS: CLOTRIMAZOLE 10 MG TROCHE MM SCH ×5 (05:36→21:01)
[2021-01-30] MEDS: PANTOPRAZOLE SODIUM 40 MG TABLET.DR PO SCH ×2 (05:36→17:00)
[2021-01-30 06:15] VITALS: BP 127/82
[2021-01-30] MEDS: ALBUTEROL SULFATE 2.5 MG/3 ML NEBU NEB SCH ×3 (06:39→23:19)
[2021-01-30 07:48] VITALS: BP 119/89
[2021-01-30] MEDS: MAG HYDROX/AL HYDROX/SIMETH 30 ML LIQUID UDC PO SCH ×3 (08:56→18:25)
[2021-01-30] MEDS: POLYVINYL ALCOHOL OPHT DROPS 15 ML BOTTLE EACHEYE SCH ×3 (08:56→17:00)
[2021-01-30] MEDS: GABAPENTIN 300 MG CAPSULE PO SCH ×3 (08:58→17:00)
[2021-01-30] MEDS: DEXAMETHASONE 4 MG TABLET PO SCH ×2 (08:58→21:03)
[2021-01-30] MEDS: MEGESTROL ACETATE 400 MG/10 ML LIQUID UDC PO SCH (08:58)
[2021-01-30] MEDS: COD LIVER OIL/ZINC OXIDE OINT 113 GM TUBE TOP SCH ×2 (09:03→21:03)
[2021-01-30] MEDS: NEOMY/BACITRAC/POLYMI OINT 28.35 GM TUBE TOP SCH ×2 (09:03→21:03)
[2021-01-30] MEDS: DOXYCYCLINE HYCLATE 100 MG TABLET PO SCH ×2 (09:03→21:03)
[2021-01-30] MEDS: VITAMINS A AND D OINT TP SCH ×5 (09:03→21:03)
[2021-01-30] MEDS: CARBAMIDE PEROXIDE OTIC DROP 15 ML BOTTLE RIGHT EAR SCH ×2 (09:03→17:00)
[2021-01-30] MEDS: AMLODIPINE 5 MG TABLET PO SCH (09:03)
--- NOTE | 2021-01-30 11:59 | NUR ---
Patient had concerns about wanting to take trach as soon as possible, nurse manager risk management Jaime spoke to patient about concerns (Charge nurse DYLAN Mendez present), Jaime reminded patient of plan to have ENT consult first, which patient had refused last week. Steps for possible decannulation discussed with patient and at this time patient agreed to go to ENT. inpatient services director to f/u. Dr. Vaca notified of situation by Net Application Support Specialist Jaime, per psych consult ordered with Dr. Cummins (for competency to make decisions). Dr. Cummins notified of psych consult, and requested psychiatric social worker supervisor to call her, Deonte RICHARDSON notified of Dr. Cummins request.
--- NOTE | 2021-01-30 12:00 | NUR ---
This ELASTIC ASSEMBLER and unit nurse geothermal plant manager Jaime Lu spoke with Dr. Cummins, per her request, and discussed patient's needs and reason for consultation.
[2021-01-30 18:35] VITALS: BP 125/85
[2021-01-30 20:00] VITALS: BP 126/61
[2021-01-31] MEDS: ALBUTEROL SULFATE 2.5 MG/3 ML NEBU NEB SCH ×3 (00:05→15:23)
[2021-01-31] MEDS: PANTOPRAZOLE SODIUM 40 MG TABLET.DR PO SCH ×2 (05:57→17:21)
[2021-01-31] MEDS: CLOTRIMAZOLE 10 MG TROCHE MM SCH ×5 (05:57→21:00)
[2021-01-31 07:06] LABS: BASOPHILS % (AUTO) 0.2 % (0.0-2.0); EOSINOPHILS % (AUTO) 0.1 % (0.0-7.0); HEMATOCRIT 38.9 % (36.7-47.1); HEMOGLOBIN 13.2 g/dL (12.5-16.3); LYMPHOCYTES # (AUTO) 0.6 K/uL (20.0-40.0); LYMPHOCYTES % (AUTO) 3.4 % (20.5-51.5); MEAN CORPUSCULAR HEMOGLOBIN 31.3 uug (23.8-33.4); MEAN CORPUSCULAR HGB CONC 34 g/dL (32.5-36.3); MEAN CORPUSCULAR VOLUME 92.2 fL (73.0-96.2); MONOCYTES # (AUTO) 1.3 K/uL (2.0-10.0); MONOCYTES % (AUTO) 7.5 % (0.0-11.0); NEUTROPHILS # (AUTO) 15.1 K/uL (1.8-8.9); NEUTROPHILS % (AUTO) 88.8 % (38.5-71.5); PLATELET COUNT (AUTO) 342 K/uL (152-348); RED BLOOD CELL COUNT(AUTO) 4.21 MIL/uL (4.06-5.63)
[2021-01-31 07:19] LABS: ALANINE AMINOTRANSFERASE 109 U/L (16-63); ALKALINE PHOSPHATASE 87 U/L (50-136); ASPARTATE AMINOTRANSFERASE 25 U/L (15-37); BILIRUBIN,TOTAL 0.3 mg/dL (0.2-1.0); CARBON DIOXIDE 24 mmol/L (21-32); CHLORIDE 100 mmol/L (98-107); CREATININE 0.6 mg/dL (0.6-1.3); GLUCOSE 106 mg/dL (74-106); POTASSIUM 4.3 mmol/L (3.5-5.1); TOTAL PROTEIN, SERUM 6.5 g/dL (6.4-8.2); UREA NITROGEN, BLOOD 20 mg/dL (7-18)
[2021-01-31] MEDS: MAG HYDROX/AL HYDROX/SIMETH 30 ML LIQUID UDC PO SCH ×3 (08:54→17:22)
[2021-01-31] MEDS: POLYVINYL ALCOHOL OPHT DROPS 15 ML BOTTLE EACHEYE SCH ×3 (08:55→17:18)
[2021-01-31] MEDS: DEXAMETHASONE 4 MG TABLET PO SCH ×2 (08:55→21:00)
[2021-01-31] MEDS: MEGESTROL ACETATE 400 MG/10 ML LIQUID UDC PO SCH (08:56)
[2021-01-31] MEDS: DOXYCYCLINE HYCLATE 100 MG TABLET PO SCH ×3 (08:56→21:01)
[2021-01-31] MEDS: GABAPENTIN 300 MG CAPSULE PO SCH ×3 (08:56→17:21)
[2021-01-31] MEDS: VITAMINS A AND D OINT TP SCH ×5 (08:57→21:02)
[2021-01-31] MEDS: NEOMY/BACITRAC/POLYMI OINT 28.35 GM TUBE TOP SCH ×2 (08:57→21:02)
[2021-01-31] MEDS: CARBAMIDE PEROXIDE OTIC DROP 15 ML BOTTLE RIGHT EAR SCH ×2 (08:57→17:21)
[2021-01-31] MEDS: COD LIVER OIL/ZINC OXIDE OINT 113 GM TUBE TOP SCH ×2 (08:57→21:02)
[2021-01-31] MEDS: AMLODIPINE 5 MG TABLET PO SCH (09:00)
[2021-01-31 11:29] LABS: LYMPHOCYTES % (MANUAL) 5 % (20-40); MONOCYTES % (MANUAL) 9 % (2-10); NEUTROPHILS % (MANUAL) 86 % (42-75)
[2021-01-31 12:57] VITALS: BP 117/77
--- NOTE | 2021-01-31 13:00 | NUR ---
Seen and evaluated By Dr Nayak for psych consult,no new orders at this time,Seen and examined by the speech therapist and Vanita Tarango,new orders for Video swallow test tomorrow.Pt Agreed with plan of care ,on close observation ,no episodes of trying to pull the trach tube during this shift,education provided about the risk of pulling it out.Pt understand at this time.
--- NOTE | 2021-01-31 15:03 | NUR ---
INTERDISCIPLINARY PLAN OF CARE CONFERENCE was held today. Patient's family was not available to attend the meeting today. Dr. Vaca and the Interdisciplinary Team reviewed the current plan of care in detail. RN reported on patient's medical condition, scheduled ENT appointment for February 06, outcome of psychiatry consultation, along with patient's intermittent uncooperative behavior and refusal off certain treatments. See RN IDT conference notes. Pharmacy discussed medications and treatments. PT discussed treatment plan and participation. OT reported on patient's refusal. SW to coordinate transportation for ENT appointment. SW to also coordinate a family conference with patient's . See all other disciplines IDT notes and physician's progress notes for additional details.
--- NOTE | 2021-01-31 17:01 | NUR ---
DYLAN called patient's Lexie, , and informed her that patient is scheduled for an ENT appointment on February 06. DYLAN stated that DYLAN would arrange transportation for the patient. SW offered for to meet patient at the ENT's office, but Lexie stated that she does not drive and has no means of transportation. DYLAN scheduled a telephone family meeting with Lexie for , 02/02 at 10:30am to discuss patient's plan of care. Lexie expressed agreement with this date/time.
[2021-01-31] MEDS: GUAIFENESIN/DEXTROMETHORPHAN 5 ML UDC PO PRN (17:22)
[2021-01-31 18:37] VITALS: BP 128/70
--- NOTE | 2021-01-31 18:50 | NUR ---
Pt. alert oriented x4. No sob or any respiratory distress. No episode of agitation but non-compliant with repositioning and bed bath. Explained the risk of not turning on the side and not maintaining a good hygiene. Pt. verbalized understanding but still refused to cooperate after offering 3 times. will continue close monitoring. endorsed to the next shift.
--- NOTE | 2021-01-31 19:34 | NUR ---
Pt notified,Covid 19 test result negative.
[2021-01-31 20:00] VITALS: BP 126/68
--- NOTE | 2021-01-31 23:05 | NUR ---
Resident A/O able to make needs know ,Resident refused to take (21:00)routine medications ( Mycelex 10 mg , Decadron 6 mg , Vibramycin 100 mg ) explained the risk and the benefits of the medication ,Resident kept refusing offered X3 times call light within easy reach.
[2021-02-01] MEDS: GUAIFENESIN/DEXTROMETHORPHAN 5 ML UDC PO PRN (06:26)
[2021-02-01] MEDS: PANTOPRAZOLE SODIUM 40 MG TABLET.DR PO SCH ×2 (06:26→17:39)
[2021-02-01] MEDS: CLOTRIMAZOLE 10 MG TROCHE MM SCH ×4 (06:26→17:39)
[2021-02-01] MEDS: ALBUTEROL SULFATE 2.5 MG/3 ML NEBU NEB SCH ×3 (07:35→23:56)
[2021-02-01 07:38] VITALS: BP 130/80
[2021-02-01] MEDS: POLYVINYL ALCOHOL OPHT DROPS 15 ML BOTTLE EACHEYE SCH ×3 (08:20→17:39)
[2021-02-01] MEDS: DEXAMETHASONE 4 MG TABLET PO SCH ×2 (08:20→21:05)
[2021-02-01] MEDS: MAG HYDROX/AL HYDROX/SIMETH 30 ML LIQUID UDC PO SCH ×3 (08:20→17:39)
[2021-02-01] MEDS: MEGESTROL ACETATE 400 MG/10 ML LIQUID UDC PO SCH (08:21)
[2021-02-01] MEDS: GABAPENTIN 300 MG CAPSULE PO SCH ×3 (08:21→17:39)
[2021-02-01] MEDS: CARBAMIDE PEROXIDE OTIC DROP 15 ML BOTTLE RIGHT EAR SCH ×2 (08:22→17:39)
[2021-02-01] MEDS: AMLODIPINE 5 MG TABLET PO SCH (08:22)
[2021-02-01] MEDS: DOXYCYCLINE HYCLATE 100 MG TABLET PO SCH ×2 (08:22→21:06)
[2021-02-01] MEDS: COD LIVER OIL/ZINC OXIDE OINT 113 GM TUBE TOP SCH ×2 (08:22→21:06)
[2021-02-01] MEDS: VITAMINS A AND D OINT TP SCH ×5 (08:23→21:07)
[2021-02-01] MEDS: NEOMY/BACITRAC/POLYMI OINT 28.35 GM TUBE TOP SCH ×2 (08:23→21:07)
--- NOTE | 2021-02-01 11:59 | NUR ---
Video swallow will be done tomorrow per speech therapist,orders carried out.
--- NOTE | 2021-02-01 14:25 | NUR ---
DYLAN mailed the updated guidelines and criteria for visitations, based on [facility] and [facility] directives, to patient's Lexie at[facility] [address] [facility] [address] [place] [id number]
--- NOTE | 2021-02-01 16:07 | NUR ---
Clinical Social work Note Met with this patient briefly after discussion in case management meeting that patient advised staff he would self-extubate himself on Saturday. Patient made no eye contact with this clinician. When asked if he planned to extubate himself, he said " I don't know, I will see on Saturday." Patient is aware is seeing an ENT next week on February 06. Per Dr Cummins during discussion of this case earlier today, patient lacks capacity to make medical decisions. This senior grant writer is of the opinion that the team should wait and see what transpires with patient. A bioethics consultation may be needed next week but this needs to be discussed with primary doctor first. Discussed with Deonte GOLD. Case will be monitored for next step.
--- NOTE | 2021-02-01 16:25 | NUR ---
This SUPERVISOR REWORK received patient registration forms from Dr. Douglas Marie's office (ENT). This SUPERVISOR REWORK met with patient to complete the forms, and obtain patient's signatures. Patient signed all necessary forms. SW will fax the completed forms, along with patient's H&P, list of medications, and insurance authorization to Dr. Marie's office.
--- NOTE | 2021-02-01 18:00 | NUR ---
Pt. alert oriented x4. No sob or any respiratory distress. No episode of agitation but non-compliant with repositioning Explained the risk of not turning on the sides ,Pt verbalized understanding but still refused to cooperate . will continue close monitoring. On po diet eat 25 to 50 %,no episodes of trying to pull out the trach tube this shift.
[2021-02-01 23:24] VITALS: BP 122/88
[2021-02-02] MEDS: GUAIFENESIN/DEXTROMETHORPHAN 5 ML UDC PO PRN ×3 (05:02→20:42)
[2021-02-02] MEDS: PANTOPRAZOLE SODIUM 40 MG TABLET.DR PO SCH ×3 (05:02→17:51)
[2021-02-02 06:50] LABS: BASOPHILS % (AUTO) 0.2 % (0.0-2.0); HEMATOCRIT 40.4 % (36.7-47.1); HEMOGLOBIN 13.8 g/dL (12.5-16.3); LYMPHOCYTES # (AUTO) 0.9 K/uL (20.0-40.0); LYMPHOCYTES % (AUTO) 6.1 % (20.5-51.5); MEAN CORPUSCULAR HEMOGLOBIN 31.3 uug (23.8-33.4); MEAN CORPUSCULAR HGB CONC 34 g/dL (32.5-36.3); MEAN CORPUSCULAR VOLUME 91.7 fL (73.0-96.2); MONOCYTES # (AUTO) 0.8 K/uL (2.0-10.0); MONOCYTES % (AUTO) 5.7 % (0.0-11.0); NEUTROPHILS # (AUTO) 12.8 K/uL (1.8-8.9); PLATELET COUNT (AUTO) 356 K/uL (152-348); RED BLOOD CELL COUNT(AUTO) 4.41 MIL/uL (4.06-5.63); WHITE BLOOD COUNT (AUTO) 14.5 K/uL (3.6-10.2)
[2021-02-02] MEDS: ALBUTEROL SULFATE 2.5 MG/3 ML NEBU NEB SCH ×3 (07:35→23:59)
[2021-02-02 07:37] LABS: ALANINE AMINOTRANSFERASE 123 U/L (16-63); ALKALINE PHOSPHATASE 103 U/L (50-136); ASPARTATE AMINOTRANSFERASE 23 U/L (15-37); BILIRUBIN,TOTAL 0.4 mg/dL (0.2-1.0); CARBON DIOXIDE 25 mmol/L (21-32); CHLORIDE 100 mmol/L (98-107); CREATININE 0.6 mg/dL (0.6-1.3); GLUCOSE 128 mg/dL (74-106); POTASSIUM 4.4 mmol/L (3.5-5.1); UREA NITROGEN, BLOOD 19 mg/dL (7-18)
[2021-02-02 07:49] VITALS: BP 127/75
[2021-02-02] MEDS: MAG HYDROX/AL HYDROX/SIMETH 30 ML LIQUID UDC PO SCH ×3 (08:00→17:52)
[2021-02-02] MEDS: POLYVINYL ALCOHOL OPHT DROPS 15 ML BOTTLE EACHEYE SCH ×3 (09:13→17:50)
[2021-02-02] MEDS: GABAPENTIN 300 MG CAPSULE PO SCH ×3 (09:13→17:50)
[2021-02-02] MEDS: DEXAMETHASONE 4 MG TABLET PO SCH ×2 (09:13→20:32)
[2021-02-02] MEDS: MEGESTROL ACETATE 400 MG/10 ML LIQUID UDC PO SCH (09:13)
[2021-02-02] MEDS: VITAMINS A AND D OINT TP SCH ×5 (09:14→20:33)
[2021-02-02] MEDS: AMLODIPINE 5 MG TABLET PO SCH (09:14)
[2021-02-02] MEDS: CARBAMIDE PEROXIDE OTIC DROP 15 ML BOTTLE RIGHT EAR SCH ×2 (09:14→17:52)
[2021-02-02] MEDS: NEOMY/BACITRAC/POLYMI OINT 28.35 GM TUBE TOP SCH ×2 (09:14→20:33)
[2021-02-02] MEDS: DOXYCYCLINE HYCLATE 100 MG TABLET PO SCH ×2 (09:14→20:32)
[2021-02-02] MEDS: COD LIVER OIL/ZINC OXIDE OINT 113 GM TUBE TOP SCH ×2 (09:14→20:33)
--- NOTE | 2021-02-02 11:13 | NUR ---
10:35am: Family conference held with patient's , Lexie. Present at the family meeting was this SERVICE EMPLOYEE, subacute nurse specification manager Jaime Lu, charge nurse Aleah, and respiratory therapist Jose. Patient's wishes to have his trach removed were discussed. The necessary steps that are needed, per physician's recommendations, in order to assess patient for a safe decannulation process were discussed with Lexie. Lexie expressed understanding and agreement with this process. Lexie was previously informed by this SW that patient is scheduled to be seen by an ENT on Saturday, 02/06. Lexie was reminded of this appointment during today's meeting, and Lexie expressed agreement with this appointment. Patient's non-compliance with some treatments/services were discussed and Lexie described patient's personality as being "hard-headed" at times, however Lexie did not have any concerns regarding patient's care at this time. Lexie asked for an update on patient's condition, and charge nurse Aleah to follow-up with Lexie later today and provide her with an update on patient's condition. The IDT team will continue to provide Lexie with updates on patient's condition and any developments/changes.
--- NOTE | 2021-02-02 11:44 | NUR ---
PT. ALLOWED RNA TO WEIGHT HIM TILL TODAY D/T SATURDAY HE REFUSED.PT. C/O LOCAL PAIN ON SACROCOCCYX AREA AND RT ISCHIUM AND EXAMINED AND PICTURE TAKEN (SEE RECORDS) NOTED WITH A 3X1 CM PINK COLOR SKIN BREAK AND WITH NEW ORDERS CARRIED OUT.PT'S ALSO AWARE OF ORDERS WELL PT. AND IN AGREEMENT AND ORDERS CARRIED OUT.
--- NOTE | 2021-02-02 14:15 | NUR ---
DYLAN faxed the signed patient registration forms for the ENT appointment, a copy of patient's H&P, pulmonary consultation, list of medications, physician's order for ENT consultation, and insurance authorization to Netta at Dr. Douglas Marie's office. ; tel # [phone].
--- NOTE | 2021-02-02 14:48 | NUR ---
PT. BACK FROM [facility] WITH [facility] AND WITH NO NEW RECOMMENDATIONS(SEE NOTES)
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
[2021-02-02] MEDS: ENSURE CLEAR 240 ML LIQUID (MIX BERRY) PO SCH (17:50)
--- NOTE | 2021-02-02 19:07 | NUR ---
PT. WAS SEEN BY DR. WHITE AND WITH NNO.PT.REFUSED NECTAR CONSISTENCY LIQUIDS AND WAS EXPLAINED THAT WITH OUT THICKENER HE COULD ASPIRATE AND STILL HE DID NOT CARE ABOUT IT.CLOSE MONITORING DONE WITH FREQUENT VISUAL CHECKS BY NURSING STAFF FOR SAFETY,CALL LIGHT ON REACH.
[2021-02-02 20:10] VITALS: BP 121/89
--- NOTE | 2021-02-02 22:27 | NUR ---
Patient took his medications with thin liquids, he refused to follow dietary recommendation of [place] thick liquids, patient is aware that he can aspirate with thin liquids but he still insist on taking thin liquids with his medications. Remains on Doxycycline for Leukocytosis, no adverse reactions noted. Noted patient suctioning his mouth with a yankauer, encouraged patient to turn form side to side, needs attended, call light within reach. Addendum: 02/02/21 at 2258 by EVANGELISTA KEMP RN Clarification on above notes: On Doxycycline by mouth for Actinomycosis, no adverse reactions noted.
[2021-02-03 00:05] VITALS: BP 128/80
--- NOTE | 2021-02-03 05:30 | NUR ---
Patient is refusing to be changed and repositioned, he was just ignoring staff when asked if he wants to be change later. Will continue offer to change his gown and assist him to turn.
[2021-02-03] MEDS: PANTOPRAZOLE SODIUM 40 MG TABLET.DR PO SCH ×2 (06:00→17:00)
--- NOTE | 2021-02-03 06:30 | NUR ---
Patient is sleeping and refused to be changed and repositioned, call light is within patient's reach.
[2021-02-03 07:56] VITALS: BP 126/88
[2021-02-03] MEDS: ALBUTEROL SULFATE 2.5 MG/3 ML NEBU NEB SCH ×3 (08:10→23:30)
[2021-02-03] MEDS: MAG HYDROX/AL HYDROX/SIMETH 30 ML LIQUID UDC PO SCH ×3 (08:57→18:03)
[2021-02-03] MEDS: POLYVINYL ALCOHOL OPHT DROPS 15 ML BOTTLE EACHEYE SCH ×3 (08:58→17:00)
[2021-02-03] MEDS: DEXAMETHASONE 4 MG TABLET PO SCH ×2 (08:59→20:37)
[2021-02-03] MEDS: MEGESTROL ACETATE 400 MG/10 ML LIQUID UDC PO SCH (08:59)
[2021-02-03] MEDS: ENSURE CLEAR 240 ML LIQUID (MIX BERRY) PO SCH ×3 (08:59→17:00)
[2021-02-03] MEDS: NEOMY/BACITRAC/POLYMI OINT 28.35 GM TUBE TOP SCH ×2 (09:00→20:37)
[2021-02-03] MEDS: VITAMINS A AND D OINT TP SCH ×4 (09:00→20:37)
[2021-02-03] MEDS: GABAPENTIN 300 MG CAPSULE PO SCH ×3 (09:00→17:00)
[2021-02-03] MEDS: AMLODIPINE 5 MG TABLET PO SCH (09:00)
[2021-02-03] MEDS: COD LIVER OIL/ZINC OXIDE OINT 113 GM TUBE TOP SCH ×2 (09:01→20:37)
[2021-02-03] MEDS: DOXYCYCLINE HYCLATE 100 MG TABLET PO SCH ×2 (09:01→20:37)
[2021-02-03] MEDS: CARBAMIDE PEROXIDE OTIC DROP 15 ML BOTTLE RIGHT EAR SCH ×2 (09:07→17:00)
[2021-02-03] MEDS: GUAIFENESIN/DEXTROMETHORPHAN 5 ML UDC PO PRN ×2 (09:12→18:14)
[2021-02-03] MEDS: ACETAMINOPHEN 325 MG TABLET-SA PATIENTS-PAIN ONLY PO PRN ×2 (09:20→15:25)
--- NOTE | 2021-02-03 10:41 | NUR ---
WOUND CARE CONSULT: PT SEEN FOR SACRAL DEEP TISSUE INJURY IN EVOLUTION WHICH EXTENDS TO LEFT BUTTOCK. PT NOTED TO HAVE MULTIPLE CO-MORBIDITIES INCLUDING CACHEXIA, HISTORY OF CANCER AND CVA. PER NURSING STAFF, PT UNCOOPERATIVE AT TIMES WITH REPOSITIONING. RECOMMEND SURGICAL CONSULT, DIETARY CONSULT/FOLLOW UP. DISCUSSED SKIN PROTECTION AND WOUND CARE WITH NURSING STAFF. DR CHARBEL RED NOTIFIED OF CONSULT REQUEST. PT IS ON FIRST STEP CIRS LOW AIRLOSS MATTRESS. SACRAL WOUND MEASURES 1.5CM X 1CM X UTD AND IS PINK IN COLOR WITH SOME PURPLE/BROWN AREA TO SURROUNDING SKIN. NO ODOR OR DRAINAGE NOTED. THERE IS A 1CM X 0.2CM X UTD AREA TO LEFT BUTTOCK ALSO. MD IN AGREEMENT WITH PLAN OF CARE. DISCUSSED OFFLOADING WITH NURSING STAFF AND P.T. CURRENT ALBUMIN LEVEL IS 2.5. Addendum: 02/03/21 at 1050 by STEPHANIE BOWERS RN LEFT ISCHIAL AREA EVALUATED AND NOTED TO BE CLEAR. PT STATES HAS SOME DISCOMFORT TO LEFT HIP/ISCHIAL AREA. RN TO DISCUSS WITH .
--- NOTE | 2021-02-03 10:45 | NUR ---
WOUND CARE NURSE STEPHANIE SPOKE TO PHYSICAL THERAPIST ABOUT AVOID SITTING POSITION D/T SACRAL SKIN BREAKDOWN AND PT. GOT IN DISAGREEMENT WITH THERAPISTS BECAUSE HE WANTS TO BE SITTING UP IN CHAIR AND STATED TO THEM "HOW AM I GOING TO GET BETTER IF IM NOT SIITING IN A CHAIR?"
--- NOTE | 2021-02-03 10:49 | NUR ---
This ECOLOGICAL MODELER called [facility] and spoke with Bakari, . This ECOLOGICAL MODELER scheduled ambulance transport for the patient for Saturday, 02/06 for patient's ENT appointment. [facility] ambulance pick-up is scheduled for Tuesday 02/06 at 3pm, for transport from [facility] to Dr. Marie's office, [address], [place] (tel # [phone]). Transport has been scheduled for roundtrip. Confirmation # [id number]. This ECOLOGICAL MODELER faxed the patient's insurance authorization for ambulance transport to Bakari at [facility], fax # [phone].
--- NOTE | 2021-02-03 11:34 | NUR ---
PT. WAS SEEN AND EXAMINED BY WOUND CARE NURSE STEPHANIE BOWERS AND ASSESSED SKIN WITH NEW ORDERS CARRIED OUT.SHE IS AWARE THAT PT. LIKES TO USE A DONUT THAT HE BROUGHT FROM [facility] ON HIS TAILBONE AND HE WAS EXPLAINED TO STOP USING IT BECAUSE ITS GOING TO DAMAGE SKIN MORE,NURSE ASKED WHY THEY PROVIDED A DONUT PILLOW AND HE SAID INITIALLY WAS FOR HIS HEAD AND LATER HE USED FOR HIT BUTT AND HE STATED THAT TOO MUCH CLEANING HURT HIS BOTTOM SKIN ,PT. NOTED TO AT TIMES HAVING STOOL INCONTINENCE BOWEL STOOL SPILLS,HE REFUSES MORNING CARE TILL LATE HOURS .
--- NOTE | 2021-02-03 11:35 | NUR ---
CORRECTED ENTRY:PT.STATED THAT FOAM DONUT WAS PROVIDED AT [facility] AND INITIALLY HE WAS USING IT FOR HIS HEAD AND THEN HE STARTED IT USING IT FOR HIS BUTT DUE TO HE LIKES TO SIT ON BED TO WATCH T.V.
[2021-02-03 12:00] VITALS: BP 136/82
--- NOTE | 2021-02-03 12:00 | NUR ---
pt been refusing to repositioned q 2 hours explained and educated consequences not to be turned in bed. Frequent room visits done still continue to refused x3 different times throughout the day. Called light with in reach at all times.
--- NOTE | 2021-02-03 12:13 | NUR ---
PT. KEEPS REFUSING NECTAR THICK LIQUID DIET HE WANTS THIN LIQUIDS.
--- NOTE | 2021-02-03 12:13 | NUR ---
PT. EXAMINED BY SURGERY Caleb OLIVAREZ AND SPOKE TO PT. AND AWARE OF WOUND CARE NURSE ORDERS AND IN AGREEMENT AND WITH NNO.
--- NOTE | 2021-02-03 12:36 | NUR ---
PT. WAS SEEN AND EXAMINED BY REG TELETYPESETTER MONITOR AND WITH NEW RECOMMENDATIONS CARRIED OUT.
[2021-02-03] MEDS: ARGININE/GLUTAMINE/CALCIUM BMB 1 EACH POWD.PACK GT SCH (17:00)
--- NOTE | 2021-02-03 17:51 | NUR ---
DR. RHODES WAS CALLED (JAVA PROGRAMMER ANALYST FOR [employer]) D/T PT. ABSOLUTELY REFUSES THICKENER IN LIQUIDS AND HE WAS EXPLAINED THE RISKS THAT HE IS TAKING TO ASPIRATE BUT HE STILL REFUSES THICKENER .
--- NOTE | 2021-02-03 18:17 | NUR ---
OBSERVED NO ATTEMPTS TO PULL OUT TRACH,FREQUENT VISUAL CHECKS DONE.
[2021-02-03 18:19] VITALS: BP 137/80
--- NOTE | 2021-02-03 18:43 | NUR ---
DR. RHODES WAS NOTIFIED ABOUT PT'S INSISTING REQUEST TO DRINK THIN LIQUIDS INSTEAD OF NECTAR CONSISTENCY LIQUIDS AND GETTING VERY UPSET , AND WITH NEW ORDER CARRIED OUT TO GIVE PT. THIN LIQUIDS HE WAS GETTING THEM [facility] PER PT'S REQUEST.
--- NOTE | 2021-02-03 18:47 | NUR ---
1800 pt refusing to followed nectar liquid diet. Pt seen by dietary/ speech but pt continue to be non complient Addendum: 02/03/21 at 1855 by NATE HERRING LVN 1800 pt continue to be non-compliant with his diet. Also refused to take clint packet as recommended by dietary.Charge nurse aware. Explained benefits and consequences. Pt. still continue to refused.
--- NOTE | 2021-02-03 19:39 | NUR ---
PT. NOT COOPERATIVE WITH TURNING SIDE TO SIDE DELAYING CARE ,REFUSING NUTRITIONAL SUPPLEMENTS ORDERS FOR WOUND HEALING AND REFUSING TO LISTEN NURSES WHEN TRYING TO EXPLAIN TO HIM THE BENEFIT FOR TX AND AT TIMES RISING VOLUME OF TV TO IGNORE THEM.
--- NOTE | 2021-02-03 20:00 | NUR ---
Patient refused to be change and turned, HEALTH CARE LIAISON offered shower to the patient to get cleaned up but refused. Patient is non-compliant with his care, Staff tried to talk to him but he ignored the staff and pretending to be sleeping, will monitor patient closely.
[2021-02-03 20:16] VITALS: BP 108/81
--- NOTE | 2021-02-03 21:00 | NUR ---
Patient is alert and oriented, trach is intact and patent, seen him suctioning his mouth with a yankauer, denies any respiratory distress, patient is still taking his medications with thin liquids as per his preference, no choking or coughing noted. Patient is aware of his chances of aspirating when not following dietary and speech' recommendations. Encouraged patient to turned from side to side but patient noted to be just on his back at this time, attended to his needs, call light within reach. Addendum: 02/03/21 at 2136 by EVANGELISTA KEMP RN Still on Doxycycline by mouth for Actinomycosis, no adverse reactions noted, afebrile, good skin care done, will continue monitor.
--- NOTE | 2021-02-04 00:27 | NUR ---
Patient is refusing to be change and reposition, he is refusing the tx for his sacral are and refused BP at this time.
[2021-02-04] MEDS: PANTOPRAZOLE SODIUM 40 MG TABLET.DR PO SCH ×2 (06:00→17:43)
--- NOTE | 2021-02-04 06:37 | NUR ---
Patient has been refusing patient care the whole shift, patient ignores staff when asking him to be change or repositioned, call light within reach.
[2021-02-04] MEDS: ALBUTEROL SULFATE 2.5 MG/3 ML NEBU NEB SCH ×3 (07:34→23:28)
[2021-02-04 07:35] VITALS: BP 116/81
--- NOTE | 2021-02-04 08:00 | NUR ---
ISOLATION FOR PUI COVID 19 PROTOCOL ORDER D/C PER DR. YOUNGBLOOD PT. NEGATIVE WEEKLY(SEE RECORD) AND ALREADY 14 DAYS.PT. SPEAKS IN THE PHONE A LOT AND PREFERS TO HAVE PMV VALVE ON ALL TIMES.
[2021-02-04] MEDS: MAG HYDROX/AL HYDROX/SIMETH 30 ML LIQUID UDC PO SCH ×3 (08:32→17:43)
[2021-02-04] MEDS: POLYVINYL ALCOHOL OPHT DROPS 15 ML BOTTLE EACHEYE SCH ×3 (08:33→17:41)
[2021-02-04] MEDS: DEXAMETHASONE 4 MG TABLET PO SCH ×2 (08:34→20:35)
[2021-02-04] MEDS: ENSURE CLEAR 240 ML LIQUID (MIX BERRY) PO SCH ×3 (08:34→17:41)
[2021-02-04] MEDS: MEGESTROL ACETATE 400 MG/10 ML LIQUID UDC PO SCH (08:35)
[2021-02-04] MEDS: GABAPENTIN 300 MG CAPSULE PO SCH ×3 (08:35→17:41)
[2021-02-04] MEDS: AMLODIPINE 5 MG TABLET PO SCH (08:36)
[2021-02-04] MEDS: DOXYCYCLINE HYCLATE 100 MG TABLET PO SCH ×2 (08:37→20:35)
[2021-02-04] MEDS: NEOMY/BACITRAC/POLYMI OINT 28.35 GM TUBE TOP SCH ×2 (08:38→20:36)
[2021-02-04] MEDS: VITAMINS A AND D OINT TP SCH ×3 (08:38→20:36)
[2021-02-04] MEDS: CARBAMIDE PEROXIDE OTIC DROP 15 ML BOTTLE RIGHT EAR SCH ×2 (08:38→17:43)
[2021-02-04] MEDS: COD LIVER OIL/ZINC OXIDE OINT 113 GM TUBE TOP SCH ×2 (08:38→20:35)
[2021-02-04] MEDS: ARGININE/GLUTAMINE/CALCIUM BMB 1 EACH POWD.PACK GT SCH ×2 (09:16→17:41)
[2021-02-04] MEDS: GUAIFENESIN/DEXTROMETHORPHAN 5 ML UDC PO PRN ×2 (09:16→18:19)
[2021-02-04] MEDS: ACETAMINOPHEN 325 MG TABLET-SA PATIENTS-PAIN ONLY PO PRN (09:18)
--- NOTE | 2021-02-04 11:00 | NUR ---
PER RT BRAEDEN AFTER PT. WAS BATHED HE ONLY ALLOWS HIM TO CHANGE THE TRACH DRESSING NOT THE TRACH TIE DUE TO HE WAS COUGHING .
--- NOTE | 2021-02-04 11:29 | NUR ---
STUDENT DRIVING INSTRUCTOR OFFERED A SHOWER AND HE ACCEPTED IT AT THIS TIME AND WAS COOPERATIVE ,LOCAL TX DONE BY DELICATESSEN GOODS STOCK CLERK AND HE PREFERS TO BE ON SITTING POSITION.PT. EATS BUT HE SUCTIONS MOUTH AND ORAL SECRETIONS ARE MIXED WITH RESIDUALS OF FOOD THAT HE ATE,PT. NOT RECEPTIVE TO ANY TEACHING RISING THE VOLUME OF TV AND AVOIDING EYE CONTACT.
--- NOTE | 2021-02-04 11:30 | NUR ---
PT. NOTED DURING SHOWER LOOSING LOTS OF HAIR.
[2021-02-04 12:00] VITALS: BP 128/84
--- NOTE | 2021-02-04 16:09 | NUR ---
FREQUENT VISUAL CHECKS DONE.
[2021-02-04 17:34] VITALS: BP 136/94
--- NOTE | 2021-02-04 18:17 | NUR ---
OBSERVED NO ATTEMPTS TO PULL OUT TRACH.
[2021-02-04 20:32] VITALS: BP 133/92
[2021-02-05 00:07] VITALS: BP 135/92
--- NOTE | 2021-02-05 02:00 | NUR ---
Patient is asleep, trach is intact and patent, no signs of any respiratory distress noted. Patient refused change and turning/repositioning, he ignores staff by covering his head with his blanket when asked to be change or if he needs assistance to be turned. Patient uses urinal, needs attended, will closely monitor. Addendum: 02/05/21 at 0248 by EVANGELISTA KEMP RN On Doxycycline by mouth for Actinomycosis, no adverse reactions noted, good skin care done, Afebrile, on aspiration precaution, will monitor closely.
[2021-02-05] MEDS: PANTOPRAZOLE SODIUM 40 MG TABLET.DR PO SCH ×2 (05:45→17:09)
[2021-02-05] MEDS: ALBUTEROL SULFATE 2.5 MG/3 ML NEBU NEB SCH ×2 (07:35→15:28)
[2021-02-05] MEDS: MAG HYDROX/AL HYDROX/SIMETH 30 ML LIQUID UDC PO SCH ×3 (08:42→17:11)
[2021-02-05] MEDS: POLYVINYL ALCOHOL OPHT DROPS 15 ML BOTTLE EACHEYE SCH ×3 (08:42→17:09)
[2021-02-05] MEDS: DEXAMETHASONE 4 MG TABLET PO SCH (08:43)
[2021-02-05] MEDS: ARGININE/GLUTAMINE/CALCIUM BMB 1 EACH POWD.PACK GT SCH ×2 (08:43→17:09)
[2021-02-05] MEDS: MEGESTROL ACETATE 400 MG/10 ML LIQUID UDC PO SCH (08:44)
[2021-02-05] MEDS: ENSURE CLEAR 240 ML LIQUID (MIX BERRY) PO SCH ×3 (08:44→17:09)
[2021-02-05] MEDS: GABAPENTIN 300 MG CAPSULE PO SCH ×3 (08:46→17:09)
[2021-02-05] MEDS: NEOMY/BACITRAC/POLYMI OINT 28.35 GM TUBE TOP SCH ×2 (08:47→21:00)
[2021-02-05] MEDS: VITAMINS A AND D OINT TP SCH ×3 (08:47→21:00)
[2021-02-05] MEDS: DOXYCYCLINE HYCLATE 100 MG TABLET PO SCH ×2 (08:47→21:00)
[2021-02-05] MEDS: COD LIVER OIL/ZINC OXIDE OINT 113 GM TUBE TOP SCH ×2 (08:47→21:00)
[2021-02-05] MEDS: CARBAMIDE PEROXIDE OTIC DROP 15 ML BOTTLE RIGHT EAR SCH ×2 (08:47→17:09)
[2021-02-05] MEDS: AMLODIPINE 5 MG TABLET PO SCH (09:00)
[2021-02-05 11:07] VITALS: BP 127/84
--- NOTE | 2021-02-05 11:35 | NUR ---
PT'S SACRAL SKIN WAS EXAMINED AND PICTURE WAS TAKEN AND OBSERVED THAT HE IS ABLE TO TURN HIMSELF EASILY AND HE WAS KINDLY REMINDED TO TURN SIDE TO SIDE ONLY AND AVOID SITTING POSITION BECAUSE HE IS VERY SKINNY AND HIS SACRAL WOUND WILL GET WORSE AND HE STATED THAT HE TURNS WHEN HE HAS PAIN ONLY BUT HE TURNS.CH. NURSE EXPLAINED THAT NEEDS TO BE Q 2 HRS SIDE TO SIDE ONLY AND HE IGNORED THE ADVISE AVOIDING EYE CONTACT AND ASKED NURSE TO LEAVE HIM ALONE.
[2021-02-05 12:00] VITALS: BP 128/73
[2021-02-05] MEDS: GUAIFENESIN/DEXTROMETHORPHAN 5 ML UDC PO PRN (17:18)
[2021-02-05 18:16] VITALS: BP 131/72
--- NOTE | 2021-02-05 18:34 | NUR ---
COVID 19 TEST WAS DONE PER [facility] REQUIREMENT AND PT. IN AGREEMENT.
[2021-02-05 20:46] VITALS: BP 128/86
[2021-02-05] MEDS: DEXAMETHASONE 6 MG TABLET PO SCH (21:00)
--- NOTE | 2021-02-05 22:07 | NUR ---
Patient is on Doxycycline by mouth for Actinomycosis, no adverse reactions noted. Trach is intact and patent, no respiratory distress noted. Patient was on speaking valve, he called because he cannot cough out secretions, This Nurse removed PMV and noted patient was able to cough out thick yellow secretions, patient declined to be suctioned via the trach, cleansed trach site. Put back PMV per patient's request, Needs attended, call light within reach.
[2021-02-06] VITALS: BP 128/96
[2021-02-06] MEDS: ALBUTEROL SULFATE 2.5 MG/3 ML NEBU NEB SCH ×4 (00:02→23:38)
[2021-02-06 06:00] VITALS: BP 125/87
[2021-02-06] MEDS: PANTOPRAZOLE SODIUM 40 MG TABLET.DR PO SCH ×2 (06:09→17:34)
--- NOTE | 2021-02-06 06:14 | NUR ---
Patient let the CUSTOMER SERVICE SPECIALIST change his linens and changed his gown, changed and repositioned, needs attended, call light within reach.
[2021-02-06 08:00] VITALS: BP 128/72
[2021-02-06] MEDS: ARGININE/GLUTAMINE/CALCIUM BMB 1 EACH POWD.PACK GT SCH ×2 (08:28→17:34)
[2021-02-06] MEDS: MAG HYDROX/AL HYDROX/SIMETH 30 ML LIQUID UDC PO SCH ×3 (08:28→17:34)
[2021-02-06] MEDS: POLYVINYL ALCOHOL OPHT DROPS 15 ML BOTTLE EACHEYE SCH ×3 (08:28→17:33)
[2021-02-06] MEDS: GABAPENTIN 300 MG CAPSULE PO SCH ×3 (08:31→17:34)
[2021-02-06] MEDS: DEXAMETHASONE 6 MG TABLET PO SCH ×2 (08:31→21:20)
[2021-02-06] MEDS: ENSURE CLEAR 240 ML LIQUID (MIX BERRY) PO SCH ×3 (08:31→17:35)
[2021-02-06] MEDS: MEGESTROL ACETATE 400 MG/10 ML LIQUID UDC PO SCH (08:31)
[2021-02-06] MEDS: AMLODIPINE 5 MG TABLET PO SCH (08:32)
[2021-02-06] MEDS: DOXYCYCLINE HYCLATE 100 MG TABLET PO SCH ×2 (08:32→21:20)
[2021-02-06] MEDS: VITAMINS A AND D OINT TP SCH ×3 (08:33→21:20)
[2021-02-06] MEDS: COD LIVER OIL/ZINC OXIDE OINT 113 GM TUBE TOP SCH ×2 (08:33→21:20)
[2021-02-06] MEDS: NEOMY/BACITRAC/POLYMI OINT 28.35 GM TUBE TOP SCH ×2 (08:33→21:20)
[2021-02-06] MEDS: CARBAMIDE PEROXIDE OTIC DROP 15 ML BOTTLE RIGHT EAR SCH ×2 (08:33→17:34)
--- NOTE | 2021-02-06 09:33 | NUR ---
PT. WAS SEEN NAD EXAMINED BY DR. RHODES AND WITH NEW ORDER FOR NEUROLOGY CONSULT AND A MESSAGE WAS LWFT.
--- NOTE | 2021-02-06 10:49 | NUR ---
DYLAN called Dr. Lema's office, , and spoke with Anastasia in order to schedule patient's initial optometry appointment. Patient's face sheet faxed to Anastasia. Anastasia stated that Dr. Lema is not available this week, but would coordinate a date with him next week and let this DYLAN know when Dr. Lema would be able to see the patient.
[2021-02-06 12:00] VITALS: BP 128/67
--- NOTE | 2021-02-06 14:00 | NUR ---
PT. ACCEPTED MORNING CARE VERY LATE AND HE SAID HE ONLY TURNS WHEN HE HAS PAIN ON HIS TAIL BONE,HE DID NOT ALLOWED NURSE TO INSPECT SKIN PROPERLY ,NOT ALLOWING TO REMOVE MEPILEX AND ONLY ALLOWING HER TO SEE A LITTLE BIT OF THE SKIN BREAK .
--- NOTE | 2021-02-06 14:21 | NUR ---
SEEN BY LEAH Villa AND WITH NNO.
--- NOTE | 2021-02-06 15:35 | NUR ---
PT. LEFT AT THIS TIME FOR ENT APPOINTMENT WITH DR. ENCISO VIA AMBULANCE [facility] IN STABLE CONDITION,ALERT AND ORIENTED WITH PORTABLE SUCTION MACHINE AND OXIGEN 2L/MIN. VIA TRACH MASK.REPORT GIVEN TO AMBULANCE CREW .
--- NOTE | 2021-02-06 17:15 | NUR ---
PT. WAS BACK FROM ENT APPOINTMENT WITH DR. ENCISO AND HE REMOVED FROM RT EAR FOREIGN OBJECT ,ACCORDING TO PT. IT WAS 2 PIECES OF Q TIPS AND WITH NEW ORDER FROM DR. ENCISO FOR O,K TO DECANNULATE FROM ENT STAND POINT.
[2021-02-06 18:00] VITALS: BP 131/72
[2021-02-06 20:14] VITALS: BP 126/84
--- NOTE | 2021-02-06 20:35 | NUR ---
PT. WAS NEGATIVE FOR COVID 19 TEST AND HE WAS AWARE.
[2021-02-07] VITALS: BP 125/74
[2021-02-07] MEDS: PANTOPRAZOLE SODIUM 40 MG TABLET.DR PO SCH ×2 (06:01→18:00)
[2021-02-07] MEDS: GUAIFENESIN/DEXTROMETHORPHAN 5 ML UDC PO PRN (06:01)
[2021-02-07 07:03] VITALS: BP 134/75
[2021-02-07] MEDS: ALBUTEROL SULFATE 2.5 MG/3 ML NEBU NEB SCH ×2 (07:43→14:53)
[2021-02-07] MEDS: MAG HYDROX/AL HYDROX/SIMETH 30 ML LIQUID UDC PO SCH ×3 (08:00→17:38)
[2021-02-07] MEDS: POLYVINYL ALCOHOL OPHT DROPS 15 ML BOTTLE EACHEYE SCH ×3 (09:08→17:33)
[2021-02-07] MEDS: ARGININE/GLUTAMINE/CALCIUM BMB 1 EACH POWD.PACK GT SCH ×2 (09:11→17:33)
[2021-02-07] MEDS: MEGESTROL ACETATE 400 MG/10 ML LIQUID UDC PO SCH (09:12)
[2021-02-07] MEDS: DEXAMETHASONE 6 MG TABLET PO SCH ×2 (09:12→21:02)
[2021-02-07] MEDS: ENSURE CLEAR 240 ML LIQUID (MIX BERRY) PO SCH ×3 (09:12→17:33)
[2021-02-07] MEDS: GABAPENTIN 300 MG CAPSULE PO SCH ×3 (09:13→17:33)
[2021-02-07] MEDS: DOXYCYCLINE HYCLATE 100 MG TABLET PO SCH ×2 (09:15→20:58)
[2021-02-07] MEDS: COD LIVER OIL/ZINC OXIDE OINT 113 GM TUBE TOP SCH ×2 (09:16→20:58)
[2021-02-07] MEDS: VITAMINS A AND D OINT TP SCH ×3 (09:16→20:58)
[2021-02-07] MEDS: CARBAMIDE PEROXIDE OTIC DROP 15 ML BOTTLE RIGHT EAR SCH ×2 (09:16→17:38)
[2021-02-07] MEDS: AMLODIPINE 5 MG TABLET PO SCH (09:21)
[2021-02-07] MEDS: NEOMY/BACITRAC/POLYMI OINT 28.35 GM TUBE TOP SCH ×2 (10:00→20:58)
--- NOTE | 2021-02-07 11:07 | NUR ---
WOUND CARE FOLLOW UP: PT SEEN FOR RE-EVALUATION OF SACRAL DEEP TISSUE INJURY IN EVOLUTION. WOUND MEASURES 1.4CM X 1CM X UTD AND IS PINK AND RED IN COLOR WITH AREA OF PURPLE/BROWN DISCOLORATION TO PERIWOUND. THERE IS SCANT SEROUS DRAINAGE, NO ODOR. LEFT BUTTOCK AREA OF WOUND NOW RESOLVED. RECOMMEND CONTINUE PRESENT TREATMENT OF OIL EMULSION DRESSING, COVER WITH FOAM DRESSING AND OFFLOAD AREA. PT FOLLOWED BY SURGICAL TEAM AND DIETARY. MULTIPLE CO-MORBIDITIES NOTED INCLUDING HISTORY OF CANCER AND CACHEXIA. PT IS ON FIRST STEP [facility] LOW AIRLOSS MATTRESS. DISCUSSED IMPORTANCE OF OFFLOADING WITH PT AND NURSING STAFF. IN AGREEMENT WITH PLAN OF CARE.
[2021-02-07 12:00] VITALS: BP 120/80
--- NOTE | 2021-02-07 12:30 | NUR ---
Seen and examined by Vanita Tarango with new orders noted.
--- NOTE | 2021-02-07 13:55 | NUR ---
Per Dr. Vaca change trach tube to shiley 6 DCFS and T Cap at trey. place on room air with spo2 97%. will cont to monitor pt.
[2021-02-07 18:35] VITALS: BP 128/86
--- NOTE | 2021-02-07 18:54 | NUR ---
Pt on Walter,Pt doesn't like it,but he drink it today,refused to turn to the L side only to his R,tx in sacral area done as ordered,Seen by the wound career services assistant Rachel and evaluated the sacral wound.on trach capped trials tolerated well o2 sat 97 to 98 %.On close observation.
[2021-02-07 20:31] VITALS: BP 116/82
--- NOTE | 2021-02-07 21:00 | NUR ---
Patient is alert and oriented, trach is intact and patent, on trach capping as tolerated. Trach cap on and patient denies and respiratory distress, patient suctioning himself in the mouth with a yankauer, noted with slight pink secretions on the suction canister. Patient just drank an strawberry flavored ensure. NO SOB, on aspiration precaution, HOB elevated, needs attended, call light within reach, will continue monitoring.
[2021-02-08] MEDS: ALBUTEROL SULFATE 2.5 MG/3 ML NEBU NEB SCH ×5 (00:24→23:30)
[2021-02-08] MEDS: PANTOPRAZOLE SODIUM 40 MG TABLET.DR PO SCH ×2 (05:28→17:48)
[2021-02-08 05:50] VITALS: BP 117/81
--- NOTE | 2021-02-08 06:20 | NUR ---
Patient was on dredge deckhand since last night, no signs of any respiratory distress noted, patient prefers to be on his right side and back only, encouraged to change position every 2 hours. ENGAGEMENT EXECUTIVE was able to changed patient's gown and repositioned, this morning he didn't have the ENGAGEMENT EXECUTIVE changed him, kept patient clean and comfortable, will continue monitor.
[2021-02-08 07:29] VITALS: BP 122/85
--- NOTE | 2021-02-08 07:30 | NUR ---
RT PT REFUSED TX AT THIS TIME PT REMAINS ON ROOM AIR WITH TRACH DIRECTOR OF MARKETING AND PROMOTIONS NO DISTRESS NOTED NURSE AWARE.
[2021-02-08] MEDS: DOXYCYCLINE HYCLATE 100 MG TABLET PO SCH ×2 (08:00→21:18)
[2021-02-08] MEDS: AMLODIPINE 5 MG TABLET PO SCH (08:00)
[2021-02-08] MEDS: DEXAMETHASONE 6 MG TABLET PO SCH ×2 (08:00→21:18)
[2021-02-08] MEDS: MAG HYDROX/AL HYDROX/SIMETH 30 ML LIQUID UDC PO SCH ×3 (08:00→17:48)
[2021-02-08] MEDS: POLYVINYL ALCOHOL OPHT DROPS 15 ML BOTTLE EACHEYE SCH ×3 (08:00→17:47)
[2021-02-08] MEDS: GABAPENTIN 300 MG CAPSULE PO SCH ×3 (08:00→17:48)
[2021-02-08] MEDS: ARGININE/GLUTAMINE/CALCIUM BMB 1 EACH POWD.PACK GT SCH ×2 (09:00→17:00)
[2021-02-08] MEDS: ENSURE CLEAR 240 ML LIQUID (MIX BERRY) PO SCH ×3 (09:02→17:47)
[2021-02-08] MEDS: CARBAMIDE PEROXIDE OTIC DROP 15 ML BOTTLE RIGHT EAR SCH ×2 (09:03→17:48)
[2021-02-08] MEDS: VITAMINS A AND D OINT TP SCH ×3 (09:04→21:20)
[2021-02-08] MEDS: NEOMY/BACITRAC/POLYMI OINT 28.35 GM TUBE TOP SCH ×2 (09:04→21:20)
[2021-02-08] MEDS: COD LIVER OIL/ZINC OXIDE OINT 113 GM TUBE TOP SCH ×2 (09:04→21:20)
[2021-02-08] MEDS: MEGESTROL ACETATE 400 MG/10 ML LIQUID UDC PO SCH (10:00)
[2021-02-08 12:00] VITALS: BP 120/81
[2021-02-08] MEDS ORDERED: PANTOPRAZOLE SODIUM 40 MG TABLET.DR PO ONE ×2 (14:57→17:26)
--- NOTE | 2021-02-08 15:16 | NUR ---
This JOB INTERVIEWER met with the patient, per patient's request to speak with social media designer about discharging home. Patient stated that he was hoping to have his trach removed by the end of the week so he can go home for Mother's Day. JOB INTERVIEWER acknowledged patient's wishes, and stated that JOB INTERVIEWER would relay patient's wishes to patient's physicians, who would be better able to discuss the decannulation process with the patient. Patient expressed understanding. This JOB INTERVIEWER to schedule a conference call with patient's in order to discuss patient's wishes for a discharge home, and to begin discussion of patient's ongoing level of care needs. ground crew chief Annmarie informed of above conversation.
--- NOTE | 2021-02-08 15:30 | NUR ---
RT PT REFUSED TX AT THIS TIME PT REMAINS ON ROOM AIR WITH TRACH PRESSURE SUPERVISOR NO DISTRESS NOTED NURSE AWARE. PT REFUSED SUCTION
[2021-02-08 18:00] VITALS: BP 122/80
--- NOTE | 2021-02-08 18:14 | NUR ---
Pt continue on capping trials,tolerated well,on room air o2 sat 97 to 98 %,pt is requesting to talk to the doctor regarding :He wants the trach tube to be discontinue and he wants to go home by saturday to visit her mom,executive secretary social welfare was notified regarding this matter ,waiting for Dr Vaca.
--- NOTE | 2021-02-08 18:23 | NUR ---
Pt refused Walter today ,no episodes of pulling out the trach,pt turn himself to back and R and refused to turn to the L Tx on sacral wound done as ordered,refused the breathing tx's,Continue on Atb therapy with Doxycycline 100 mg po every 12 hours x 45 days for Actinomycosis,no adverse reaction noted.
[2021-02-08 20:00] VITALS: BP 117/82
--- NOTE | 2021-02-08 23:35 | NUR ---
PT IS CURRENTLY ON ROOM AIR WITH RED TCAP IN PLACE. NO SIGNS OF RESPIRATORY DISTRESS NOTED AT THIS TIME. PATIENT HAS REFUSED FACEMASK HHN TREATMENTS, STATES HE " DOESNT NEED THEM OR ANY HELP". RISKS AND BENEFITS EXPLAINED. TCAP WITH ROOM AIR IS TOLERATED WELL, NO COMPLICATIONS . WILL CONTINUE TO MONITOR. NURSING INFORMED.
--- NOTE | 2021-02-09 04:47 | NUR ---
Doxycycline 100 mg po every 12 hours x 45 days for Actinomycosis,no adverse reaction noted. On Trach red capping, tolerated sats 98%. No episode of pulling trach.
[2021-02-09] MEDS: PANTOPRAZOLE SODIUM 40 MG TABLET.DR PO SCH (05:26)
[2021-02-09 06:10] VITALS: BP 118/80
[2021-02-09] MEDS: ALBUTEROL SULFATE 2.5 MG/3 ML NEBU NEB SCH ×4 (07:35→23:56)
[2021-02-09 07:57] VITALS: BP 133/100
[2021-02-09] MEDS: ARGININE/GLUTAMINE/CALCIUM BMB 1 EACH POWD.PACK GT SCH ×2 (08:47→17:32)
[2021-02-09] MEDS: POLYVINYL ALCOHOL OPHT DROPS 15 ML BOTTLE EACHEYE SCH ×3 (08:47→17:29)
[2021-02-09] MEDS: MAG HYDROX/AL HYDROX/SIMETH 30 ML LIQUID UDC PO SCH ×3 (08:47→17:33)
[2021-02-09] MEDS: DEXAMETHASONE 6 MG TABLET PO SCH ×2 (08:48→21:22)
[2021-02-09] MEDS: ENSURE CLEAR 240 ML LIQUID (MIX BERRY) PO SCH ×3 (08:48→17:00)
[2021-02-09] MEDS: MEGESTROL ACETATE 400 MG/10 ML LIQUID UDC PO SCH (08:49)
[2021-02-09] MEDS: GABAPENTIN 300 MG CAPSULE PO SCH ×3 (08:49→17:32)
[2021-02-09] MEDS: AMLODIPINE 5 MG TABLET PO SCH (08:50)
[2021-02-09] MEDS: DOXYCYCLINE HYCLATE 100 MG TABLET PO SCH ×2 (08:51→21:22)
[2021-02-09] MEDS: CARBAMIDE PEROXIDE OTIC DROP 15 ML BOTTLE RIGHT EAR SCH ×2 (08:51→17:33)
[2021-02-09] MEDS: COD LIVER OIL/ZINC OXIDE OINT 113 GM TUBE TOP SCH ×2 (08:51→21:24)
[2021-02-09] MEDS: VITAMINS A AND D OINT TP SCH ×3 (08:52→21:25)
[2021-02-09] MEDS: NEOMY/BACITRAC/POLYMI OINT 28.35 GM TUBE TOP SCH ×2 (08:52→21:24)
[2021-02-09 12:00] VITALS: BP 131/81
--- NOTE | 2021-02-09 12:07 | NUR ---
This LACQUER SIZER called and spoke with patient's Lexie, , regarding patient's wishes to be discharged home. Lexie was available and receptive to speaking with this LACQUER SIZER. Lexie stated that she is aware that patient wants to return home, and is hoping that it will happen soon. SW expressed understanding and informed Lexie that patient's physician has started the decannulation process, and that patient is being monitored to ensure that the process progresses safely and successfully. Lexie expressed understanding. This LACQUER SIZER discussed patient's level of care needs, which this LACQUER SIZER was informed of by PT Elizabeth. This LACQUER SIZER informed Lexie that per PT Elizabeth, patient does need about moderate level of assistance with transfers and ambulation, and would require DME equipment, and asked Lexie if Lexie would be able to provide the physical help the patient needs at home. Lexie stated that she would be able to assist him physically, and that she was also looking forward to having the patient come home. This LACQUER SIZER informed Lexie that she would relay this information to the physician. This LACQUER SIZER to remain available for care coordination.
[2021-02-09] MEDS ORDERED: PANTOPRAZOLE SODIUM 40 MG TABLET.DR PO ONE (15:41)
[2021-02-09 18:00] VITALS: BP 129/73
[2021-02-09 20:00] VITALS: BP 127/89
--- NOTE | 2021-02-10 04:08 | NUR ---
Patient is still on chartered wealth manager, Tolerating red capping at this time, no respiratory distress noted, patient refused earlier breathing treatment per RT. needs attended will continue monitor.
[2021-02-10] MEDS: PANTOPRAZOLE SODIUM 40 MG TABLET.DR PO SCH (05:33)
[2021-02-10] MEDS ORDERED: PANTOPRAZOLE SODIUM 40 MG TABLET.DR PO SCH (06:00)
[2021-02-10 06:18] VITALS: BP 122/82
[2021-02-10] MEDS: ALBUTEROL SULFATE 2.5 MG/3 ML NEBU NEB SCH ×3 (07:35→21:40)
[2021-02-10 07:41] VITALS: BP 113/79
[2021-02-10] MEDS: MAG HYDROX/AL HYDROX/SIMETH 30 ML LIQUID UDC PO SCH ×3 (08:00→17:42)
[2021-02-10] MEDS: ENSURE CLEAR 240 ML LIQUID (MIX BERRY) PO SCH ×3 (09:00→17:00)
[2021-02-10] MEDS: POLYVINYL ALCOHOL OPHT DROPS 15 ML BOTTLE EACHEYE SCH ×3 (09:06→17:37)
[2021-02-10] MEDS: DEXAMETHASONE 6 MG TABLET PO SCH ×2 (09:06→21:09)
[2021-02-10] MEDS: ARGININE/GLUTAMINE/CALCIUM BMB 1 EACH POWD.PACK GT SCH ×2 (09:06→17:00)
[2021-02-10] MEDS: GABAPENTIN 300 MG CAPSULE PO SCH ×3 (09:07→17:38)
[2021-02-10] MEDS: MEGESTROL ACETATE 400 MG/10 ML LIQUID UDC PO SCH (09:07)
[2021-02-10] MEDS: CARBAMIDE PEROXIDE OTIC DROP 15 ML BOTTLE RIGHT EAR SCH ×2 (09:08→17:39)
[2021-02-10] MEDS: NEOMY/BACITRAC/POLYMI OINT 28.35 GM TUBE TOP SCH (09:08)
[2021-02-10] MEDS: DOXYCYCLINE HYCLATE 100 MG TABLET PO SCH ×2 (09:08→21:09)
[2021-02-10] MEDS: COD LIVER OIL/ZINC OXIDE OINT 113 GM TUBE TOP SCH ×2 (09:08→21:09)
[2021-02-10] MEDS: AMLODIPINE 5 MG TABLET PO SCH (09:08)
[2021-02-10] MEDS: VITAMINS A AND D OINT TP SCH ×3 (09:09→21:09)
--- NOTE | 2021-02-10 10:40 | NUR ---
Per MD orders, patient was decannulated and trey well. Patient is on room air with saturation 98% and HR 99. Patient educated and instructed about post decannulation care and understood. Will continue to monitor throughout shift. Charge nurses made aware.
[2021-02-10 12:00] VITALS: BP 121/67
--- NOTE | 2021-02-10 13:08 | NUR ---
WOUND CARE FOLLOW UP: PT SEEN FOR RE-EVALUATION OF SACRAL DEEP TISSUE INJURY IN EVOLUTION WHICH IS SMALLER IN SIZE. WOUND MEASURES 1CM X 0.5CM X 0.1CM AND IS PINK IN COLOR WITH SOME BROWN DISCOLORATION TO PERIWOUND AREA. NO DRAINAGE NOTED, NO ODOR. RECOMMEND HYDROGEL TO WOUND BASE, COVER WITH FOAM DRESSING AND OFFLOAD. DISCUSSED WITH NURSING STAFF AND SURGICAL NMelva BALL MD IN AGREEMENT WITH PLAN OF CARE.
--- NOTE | 2021-02-10 15:45 | NUR ---
A+O x4, patient decannulated this morning, no acute respiratory distress noted, O2sat 98%, no c/o any discomfort, patient stated that he wants to go home on Saturday at 2pm, Douglas Aguilar([facility] Library Science Professor) notified, Gee ([employer] Band Sawyer) notified and will arrange discharge planning.
[2021-02-10 18:00] VITALS: BP 102/62
--- NOTE | 2021-02-10 18:49 | NUR ---
Patient in bed. call light within reach. no acute respiratory distress noted
[2021-02-10 20:30] VITALS: BP 121/89
[2021-02-11 00:01] VITALS: BP 116/68
[2021-02-11] MEDS: PANTOPRAZOLE SODIUM 40 MG TABLET.DR PO SCH (05:20)
--- NOTE | 2021-02-11 06:00 | NUR ---
os sat 98% to 100%, no respiratory distress noted, call light within reach, slept on long hours,pt checked frequently.
[2021-02-11 06:08] VITALS: BP 119/83
[2021-02-11] MEDS: ALBUTEROL SULFATE 2.5 MG/3 ML NEBU NEB SCH ×3 (07:31→22:32)
[2021-02-11] MEDS: MAG HYDROX/AL HYDROX/SIMETH 30 ML LIQUID UDC PO SCH ×3 (08:00→17:20)
[2021-02-11] MEDS: VITAMINS A AND D OINT TP SCH ×3 (09:00→21:13)
[2021-02-11] MEDS: AMLODIPINE 5 MG TABLET PO SCH (09:00)
[2021-02-11] MEDS: DEXAMETHASONE 6 MG TABLET PO SCH ×2 (09:00→21:12)
[2021-02-11] MEDS: CARBAMIDE PEROXIDE OTIC DROP 15 ML BOTTLE RIGHT EAR SCH ×2 (09:00→17:20)
[2021-02-11] MEDS: ARGININE/GLUTAMINE/CALCIUM BMB 1 EACH POWD.PACK GT SCH ×2 (09:00→17:00)
[2021-02-11] MEDS: DOXYCYCLINE HYCLATE 100 MG TABLET PO SCH ×2 (09:00→21:12)
[2021-02-11] MEDS: COD LIVER OIL/ZINC OXIDE OINT 113 GM TUBE TOP SCH ×2 (09:00→21:12)
[2021-02-11] MEDS: POLYVINYL ALCOHOL OPHT DROPS 15 ML BOTTLE EACHEYE SCH ×3 (09:00→17:16)
[2021-02-11] MEDS: MEGESTROL ACETATE 400 MG/10 ML LIQUID UDC PO SCH (09:00)
[2021-02-11] MEDS: ENSURE CLEAR 240 ML LIQUID (MIX BERRY) PO SCH ×3 (09:00→17:00)
[2021-02-11] MEDS: GABAPENTIN 300 MG CAPSULE PO SCH ×3 (09:00→17:16)
[2021-02-11 09:30] VITALS: BP 128/64
[2021-02-11 12:00] VITALS: BP 131/69
--- NOTE | 2021-02-11 17:20 | NUR ---
Patient in bed. call light within reach. no acute respiratory distress noted O2sat 97% 99% RA
[2021-02-11 18:00] VITALS: BP 129/65
[2021-02-11 20:11] VITALS: BP 122/87
[2021-02-12 00:06] VITALS: BP 124/66
[2021-02-12] MEDS: PANTOPRAZOLE SODIUM 40 MG TABLET.DR PO SCH (06:20)
[2021-02-12 06:24] VITALS: BP 119/63
[2021-02-12] MEDS: ALBUTEROL SULFATE 2.5 MG/3 ML NEBU NEB SCH ×2 (07:35→15:07)
[2021-02-12] MEDS: POLYVINYL ALCOHOL OPHT DROPS 15 ML BOTTLE EACHEYE SCH ×3 (08:48→17:04)
[2021-02-12] MEDS: MAG HYDROX/AL HYDROX/SIMETH 30 ML LIQUID UDC PO SCH ×3 (08:48→17:05)
[2021-02-12] MEDS: ARGININE/GLUTAMINE/CALCIUM BMB 1 EACH POWD.PACK GT SCH ×2 (08:48→17:04)
[2021-02-12] MEDS: ENSURE CLEAR 240 ML LIQUID (MIX BERRY) PO SCH ×3 (08:49→17:04)
[2021-02-12] MEDS: GABAPENTIN 300 MG CAPSULE PO SCH ×3 (08:49→17:04)
[2021-02-12] MEDS: MEGESTROL ACETATE 400 MG/10 ML LIQUID UDC PO SCH (08:49)
[2021-02-12] MEDS: DEXAMETHASONE 6 MG TABLET PO SCH ×2 (08:49→21:29)
[2021-02-12] MEDS: CARBAMIDE PEROXIDE OTIC DROP 15 ML BOTTLE RIGHT EAR SCH ×2 (08:50→17:04)
[2021-02-12] MEDS: DOXYCYCLINE HYCLATE 100 MG TABLET PO SCH ×2 (08:50→21:29)
[2021-02-12] MEDS: AMLODIPINE 5 MG TABLET PO SCH (08:50)
[2021-02-12] MEDS: VITAMINS A AND D OINT TP SCH ×3 (08:50→21:29)
[2021-02-12] MEDS: COD LIVER OIL/ZINC OXIDE OINT 113 GM TUBE TOP SCH ×2 (08:50→21:29)
[2021-02-12] MEDS: GUAIFENESIN/DEXTROMETHORPHAN 5 ML UDC PO PRN (08:51)
--- NOTE | 2021-02-12 10:45 | NUR ---
Dr Camacho was notified Pt has been decannulated on saturday and he wants to be discharge tomorow ,he will come tonight and evaluate him for discharge.
[2021-02-12 12:00] VITALS: BP 124/62
[2021-02-12] MEDS ORDERED: ALBUTEROL SULFATE 2.5 MG/3 ML NEBU NEB PRN (18:54)
--- NOTE | 2021-02-12 19:02 | NUR ---
Covid 19 test done today,Pt notified.
[2021-02-12 19:47] VITALS: BP 119/88
--- NOTE | 2021-02-12 23:43 | NUR ---
Patient is alert and oriented, breathing even and non-labored, no signs of any respiratory distress noted, 02 sat in 99% on room air, needs attended, call light within reach.
[2021-02-13 00:01] VITALS: BP 118/72
[2021-02-13 06:05] VITALS: BP 118/72
[2021-02-13] MEDS: PANTOPRAZOLE SODIUM 40 MG TABLET.DR PO SCH (06:45)
--- NOTE | 2021-02-13 07:00 | NUR ---
Patient is still sleeping, breathing even and non-labored, 02 sat on room air is 98%, no signs of any shortness of breath, will continue monitor.
[2021-02-13 08:00] VITALS: BP 117/84
[2021-02-13] MEDS: MAG HYDROX/AL HYDROX/SIMETH 30 ML LIQUID UDC PO SCH ×2 (08:00→12:44)
--- NOTE | 2021-02-13 08:00 | NUR ---
Patient a+o x4, no acute respiratory distress noted, o2sat 98%, no c/o pain or discomfort at this time.
[2021-02-13] MEDS: POLYVINYL ALCOHOL OPHT DROPS 15 ML BOTTLE EACHEYE SCH ×2 (09:13→12:45)
[2021-02-13] MEDS: DEXAMETHASONE 6 MG TABLET PO SCH (09:14)
[2021-02-13] MEDS: ARGININE/GLUTAMINE/CALCIUM BMB 1 EACH POWD.PACK GT SCH (09:14)
[2021-02-13] MEDS: GABAPENTIN 300 MG CAPSULE PO SCH ×2 (09:14→12:45)
[2021-02-13] MEDS: MEGESTROL ACETATE 400 MG/10 ML LIQUID UDC PO SCH (09:14)
[2021-02-13] MEDS: ENSURE CLEAR 240 ML LIQUID (MIX BERRY) PO SCH ×2 (09:14→12:45)
[2021-02-13] MEDS: DOXYCYCLINE HYCLATE 100 MG TABLET PO SCH (09:15)
[2021-02-13] MEDS: AMLODIPINE 5 MG TABLET PO SCH (09:15)
[2021-02-13] MEDS: VITAMINS A AND D OINT TP SCH ×2 (09:16)
[2021-02-13] MEDS: CARBAMIDE PEROXIDE OTIC DROP 15 ML BOTTLE RIGHT EAR SCH (09:16)
[2021-02-13] MEDS: COD LIVER OIL/ZINC OXIDE OINT 113 GM TUBE TOP SCH (09:16)
--- NOTE | 2021-02-13 10:56 | NUR ---
DYLAN received a call from Anastasia at Dr. Lema's office, , who stated that Dr. Lema would be in today to see patient for his initial eye exam.
--- NOTE | 2021-02-13 11:16 | NUR ---
Parachute Harness Rigger Note: JEAN CARLOS Gee had started the discharge planning arrangements on Saturday, 02/10. See CM notes, which stated that patient's insurance had authorized DME and HH services. This EAR NOSE THROAT SURGEON contacted patient's Lexie, to follow-up on the status of the DME delivery and DC plans. Patient's Lexie is in agreement with patient being discharged home, and is available to tend to patient's needs. Lexie stated that she had not received any DME delivery yet. This EAR NOSE THROAT SURGEON contacted [employer] insurance CM Kay, , to follow-up on the status of the DME delivery. JEAN CARLOS Villanueva was not available and this EAR NOSE THROAT SURGEON left her a voicemail message asking for a call back to check on status of DME delivery and to coordinate services for discharge. SW will wait for call back, and follow-up, as needed.
[2021-02-13] MEDS ORDERED: PANT40TA2 PO (11:17)
[2021-02-13] MEDS ORDERED: DEXA6TAB PO (11:17)
[2021-02-13] MEDS ORDERED: LACT296L PO (11:17)
[2021-02-13] MEDS ORDERED: DOXY100T2 PO (11:17)
[2021-02-13] MEDS ORDERED: Gabapentin PO (11:17)
[2021-02-13] MEDS ORDERED: AMLO-212 PO (11:17)
[2021-02-13 12:00] VITALS: BP 122/78
--- NOTE | 2021-02-13 13:24 | NUR ---
This MANAGER EDITORIAL followed up with case liner Zoraida at patient's insurance, , who works with JEAN CARLOS Villanueva. Zoraida was available, and MANAGER EDITORIAL discussed status of DME delivery and home health services, which were initiated on Saturday. Zoraida stated that the authorization for patient's wheelchair was sent to [employer] [facility] [phone] on Saturday afternoon. Zoraida stated that she was still waiting for the 3-in-1 bedside commode authorization, which she will then send to [facility]. Zoraida stated that the shower chair was not authorized at this time. Zoraida also stated that patient's Home Health referral has been sent to [employer] [phone]. This MANAGER EDITORIAL to follow-up with [facility] and [employer] [facility]. This MANAGER EDITORIAL inquired about ambulance transport home for the patient, but Zoraida stated that it would only be authorized if patient was bed bound. Zoraida provided information on the transportation company that the insurance is contracted with, and faxed this MANAGER EDITORIAL an authorization and instructions. This MANAGER EDITORIAL to follow-up.
--- NOTE | 2021-02-13 13:35 | NUR ---
This NAME PLATE STAMPER called [facility] [phone] and spoke with Gavi. Gavi confirmed receipt of the authorization for the wheelchair. Gavi stated she would look into the delivery time and call this NAME PLATE STAMPER back. This NAME PLATE STAMPER to follow-up, as needed.
--- NOTE | 2021-02-13 14:35 | NUR ---
This ASSOCIATE PROGRAMMER ANALYST followed up with [facility] [phone] and spoke with Gema. Gema confirmed the order and the authorization for a standard wheelchair. Gema stated that they would contact patient's Lexie (phone number confirmed) and that they would deliver the wheelchair to the patient's home today.
--- NOTE | 2021-02-13 14:55 | NUR ---
This BOX NAILER attempted to follow-up with [facility], , but there was no answer. This BOX NAILER will attempt follow-up again.
--- NOTE | 2021-02-13 15:57 | NUR ---
3:10pm: This VIDEO PLAYER MECHANIC called [facility] ambulance [employer] [phone] and spoke with Jake. Ambulance transport arranged for the patient for discharge home today. Jake stated that ambulance will arrive to pick the patient up in about 1 - 1 1/2 hours. chlorobutadiene scrubber operator Andrea and FANTA Aguilar informed. SW called patient's Lexie, and informed her that patient will be coming home tonight by ambulance. This VIDEO PLAYER MECHANIC followed up with Lexie about whether the [facility] company had contacted her regarding the wheelchair delivery, and Lexie stated that they had called her and would be delivering the wheelchair later today. This VIDEO PLAYER MECHANIC stated that per patient's insurance, a 3-1 commode would also be delivered to patient, once authorized. This VIDEO PLAYER MECHANIC also stated that patient would have HH follow-up. Lexie expressed understanding and agreement with all above, and thanked this VIDEO PLAYER MECHANIC for all the arrangements. This VIDEO PLAYER MECHANIC followed-up on the admission paperwork that this VIDEO PLAYER MECHANIC had sent Lexie at time of admission, and asked if Lexie could sign and return the forms. Lexie stated that she had received them, and would complete them, sign them, and return them to this VIDEO PLAYER MECHANIC.
--- NOTE | 2021-02-13 16:28 | NUR ---
This LICENSED MASSAGE THERAPIST followed-up with [facility], , and spoke with Bhavani. Bhavani confirmed receipt of patient's referral for home health, along with insurance authorization. Bhavani stated that they will be scheduling nursing follow-up tomorrow at patient's home. This LICENSED MASSAGE THERAPIST asked Bhavani if the home health needed any medical records faxed to them from the hospital, and Bhavani stated that they did not need any additional information at this time. No further SS interventions needed at this time.
[2021-02-13 17:00] VITALS: BP 110/79
--- NOTE | 2021-02-13 17:00 | NUR ---
Discharged patient home with home health and DME, all instructions given to patient verbalized understanding, body check done, photo taken, instructed to do frequent repositioning while at home, informed of wound care f/u with home health. In stable condition, no s/s of respiratory distress, no c/o pain or discomfort, SW talked to the regarding discharge, Dr. Camacho, and Dr. Vaca notified.
--- NOTE | 2021-02-13 17:11 | NUR ---
Patient seen today by Dr. Lema for his initial eye exam. See optometry notes in chart for details.
== END 2021-02-13 18:20 | disposition home health service (06) | DRG 133 ==
LOC: SA 18:17
PROVIDERS: ATTEND Internal Medicine
DX: J96.10 Chronic respiratory failure, unspecified whether with hypoxia or hypercapnia (principal); E43 Unspecified severe protein-calorie malnutrition; B37.0 Candidal stomatitis; D68.59 Other primary thrombophilia; Z93.0 Tracheostomy status; R64 Cachexia; F05 Delirium due to known physiological condition; E87.1 Hypo-osmolality and hyponatremia; I42.1 Obstructive hypertrophic cardiomyopathy; I69.192 Facial weakness following nontraumatic intracerebral hemorrhage; I69.151 Hemiplegia and hemiparesis following nontraumatic intracerebral hemorrhage affecting right dominant side; J38.7 Other diseases of larynx; D72.829 Elevated white blood cell count, unspecified; F12.90 Cannabis use, unspecified, uncomplicated; K21.9 Gastro-esophageal reflux disease without esophagitis; R13.10 Dysphagia, unspecified; Z87.891 Personal history of nicotine dependence; S30.0XXA Contusion of lower back and pelvis, initial encounter; X58.XXXA Exposure to other specified factors, initial encounter; Y92.230 Patient room in hospital as the place of occurrence of the external cause; T16.1XXA Foreign body in right ear, initial encounter; Y93.89 Activity, other specified; Y92.89 Other specified places as the place of occurrence of the external cause; R62.7 Adult failure to thrive; R73.03 Prediabetes; Z20.822 Contact with and (suspected) exposure to COVID-19
CPT/HCPCS: 36415; 70030-TC; 71045; 74230; 83735; 84100; 84443; 85025; 86140; 86580; 94640; J8540; J8999; Q0162; U0003